=== PATIENT | female | born 1955 | race Caucasian/White ===

== ENCOUNTER 2016-07-05 15:06 | Inpatient (IN) | payer BC ==
[2016-07-05] MEDS ORDERED: Albuterol/Ipratropium NEB.SOL* Albuterol 2.5 MG/Ipratropium 0.5 MG 3 ML INH ONE (15:33)
[2016-07-05] MEDS ORDERED: Cefepime(*) 2 GM in NS 0.9% 50 ML* 50 ML IVPB ONE (15:33)
[2016-07-05] MEDS ORDERED: methylPREDNISolone SOD SUCC* 125 MG 2 ML VIAL IV ONE (15:33)
[2016-07-05] MEDS ORDERED: Levofloxacin 750 MG IVPREMIX(* 750 MG/150 ML BAG IVPB ONE (15:36)
[2016-07-05] MEDS ORDERED: NS 0.9% 1000 ML* 1,000 ML IV ONE (15:36)
[2016-07-05 16:01] LABS: Hematocrit 44 % (35-47); Mean Corpuscular HGB Conc 34 g/dl (31-36); Mean Corpuscular Hemoglobin 32 pg (27-31); Mean Corpuscular Volume 94 fL (80-97); Mean Platelet Volume 8 um3 (7.4-10.4); Red Blood Count 4.69 10^6/ul (4.0-5.4); Red Cell Distribution Width 14 % (10.5-15)
[2016-07-05] MEDS ORDERED: NS 0.9% 50 ML* 50 ML ONE (16:09)
[2016-07-05 16:25] LABS: Troponin I 0.01 ng/mL (<0.04)
[2016-07-05 16:29] LABS: BUN/Creatinine Ratio 34.2 (8-20); Calcium 9.3 mg/dL (8.6-10.3); EGFR African American 94.5 (>60); EGFR Non-African American 73.5 (>60); Potassium 3.5 mmol/L (3.5-5.0); Total Bilirubin 0.6 mg/dL (0.2-1.0)
--- NOTE | 2016-07-05 16:31 | RAD ---
INDICATION: Shortness of breath. COMPARISON: Comparison is made with prior chest x-ray study from September 26, 2015. TECHNIQUE: Dual-energy PA and lateral views of the chest were obtained. FINDINGS: The heart is within normal limits in size. Mediastinal and hilar contours appear within normal limits. The lungs are hyperinflated with flattening of the diaphragms consistent with chronic obstructive pulmonary disease. There is mild prominence of the interstitial markings which are unchanged. No pleural effusion is seen. There is an old healed fracture of the left posterior lateral fifth rib. IMPRESSION: FINDINGS CONSISTENT WITH COPD, NO EVIDENCE FOR ACUTE FINDING.
[2016-07-05 16:59] LABS: PCO2 Arterial 41 mmHg (35-45)
--- NOTE | 2016-07-05 17:31 | ED ---
Katie, DoctorKorina scribed for Leslie Mortensen MD on 07/05/16 at 1621 . Shortness of Breath - HPI Summary HPI Summary: 61 year old female arrived to [facility] c/o COPD exacerbation and SOB. Her symptoms began over a week ago; she visited [facility] three days ago and was given prednisone and doxy for her increased SOB. She additionally has been experiencing wheezing, a sore throat, regular coughing, and recent weight gain. She indicates that her at-home nebulizer and medications have not alleviated any of her symptoms. She does not have a PMHx of blood clots and is not experiencing any calf pain. She is a former smoker (quit in 2002); no PMHx of DM , HTN, or CAD. She regularly sees Dr. De La Rosa (PCP). - History of Current Complaint Chief Complaint: EDShortnessOfBreath Time Seen by Provider: 07/05/16 15:32 Hx Obtained From: Patient Onset/Duration: Gradual Onset, Still Present Current Severity: Moderate Dyspnea At: Exertion Aggrevating Factors: Deep Breaths Alleviating Factors: Nothing - no change with nebulizer or prednisone/doxy Associated Signs & Symptoms: Cough (Nonproductive), Wheezing - Allergy/Home Medications Allergies/Adverse Reactions: Allergies Allergy/AdvReac Type Severity Reaction Status Date / Time No Known Allergies Allergy Verified 04/29/16 14:15 PMH/Surg Hx/FS Hx/Imm Hx Endocrine/Hematology History: Denies: Hx Diabetes, Hx Thyroid Disease Cardiovascular History: Denies: Hx Congestive Heart Failure, Hx Hypercholesterolemia, Hx Hypertension , Hx Pacemaker/ICD Respiratory History: Reports: Hx Asthma, Hx Chronic Obstructive Pulmonary Disease (COPD) GI History: Denies: Hx Ulcer History: Reports: Hx Kidney Stones - Dec 2014 to the ED Denies: Hx Dialysis, Hx Renal Disease Musculoskeletal History: Denies: Hx Osteoporosis Sensory History: Denies: Hx Hearing Aid Psychiatric History: Reports: Hx Depression Denies: Hx Panic Disorder Infectious Disease History: Denies: Hx Hepatitis, Hx Human Immunodeficiency Virus (HIV), Traveled Outside the [place] in Last 30 Days - Family History Known Family History: Positive: Diabetes - Social History Lives: Alone - currently staying with a friend Alcohol Use: Rare Substance Use Type: Reports: None Smoking Status (MU): Former Smoker - quit in 2002 Review of Systems Negative: Fever Positive: Sore Throat Positive: Shortness Of Breath, Cough Positive: Other - no leg pain . Negative: Edema All Other Systems Reviewed And Are Negative: Yes Physical Exam Triage Information Reviewed: Yes Vital Signs On Initial Exam: Initial Vitals Temp Pulse Resp BP Pulse Ox 97.7 F 102 22 157/118 93 07/05/16 15:11 07/05/16 15:11 07/05/16 15:11 07/05/16 15:11 07/05/16 15:11 Vital Signs Reviewed: Yes Appearance: Positive: Well-Appearing, No Pain Distress Skin: Positive: Warm, Skin Color Reflects Adequate Perfusion, Dry Eyes: Positive: EOMI, CHAPARRO ENT: Positive: Pharynx normal, TMs normal Respiratory/Lung Sounds: Positive: Wheezes - expiratory wheezing, Other - tachypnea, contractions that are very clavicular Cardiovascular: Positive: RRR. Negative: Murmur, Rub Abdomen Description: Positive: Nontender, Soft. Negative: Distended, Guarding Bowel Sounds: Positive: Present Musculoskeletal: Positive: Strength/ROM Intact. Negative: Edema Left, Edema Right Neurological: Positive: Sensory/Motor Intact, Alert, Oriented to Person Place, Time, CN Intact II-III Psychiatric: Positive: Affect/Mood Appropriate Diagnostics - Vital Signs Vital Signs Temp Pulse Resp BP Pulse Ox 07/05/16 15:11 97.7 F 102 22 157/118 93 - Laboratory Lab Results: Lab Results 07/05/16 07/05/16 07/05/16 Range/Units 15:48 15:48 15:48 WBC 12.0 H (3.5-10.8) 10^3/ul RBC 4.69 (4.0-5.4) 10^6/ul Hgb 15.0 (12.0-16.0) g/dl Hct 44 (35-47) % MCV 94 (80-97) fL MCH 32 H (27-31) pg MCHC 34 (31-36) g/dl RDW 14 (10.5-15) % Plt Count 272 (150-450) 10^3/ul MPV 8 (7.4-10.4) um3 Neut % (Auto) 84.6 H (38-83) % Lymph % (Auto) 11.6 L (25-47) % [place] % (Auto) 2.5 (1-9) % Eos % (Auto) 0.4 (0-6) % Baso % (Auto) 0.9 (0-2) % Absolute Neuts (auto) 10.1 H (1.5-7.7) 10^3/ul Absolute Lymphs (auto) 1.4 (1.0-4.8) 10^3/ul Absolute Monos (auto) 0.3 (0-0.8) 10^3/ul Absolute Eos (auto) 0.1 (0-0.6) 10^3/ul Absolute Basos (auto) 0.1 (0-0.2) 10^3/ul Absolute Nucleated RBC 0 10^3/ul Nucleated RBC % 0 Patient Temperature ABG pH (7.35-7.45) ABG pCO2 (35-45) mmHg ABG pO2 (80-100) mmHg ABG HCO3 (19-31) mmol/L ABG O2 Saturation (95-98) % ABG Base Excess (-2.0-2.0) Respiration Rate O2 Delivery Device Ventilator Type Vent Mode FiO2 Inspiratory Time PEEP Pressure Support Pressure Control EPAP IPAP BiPAP Sodium 139 (133-145) mmol/L Potassium 3.5 (3.5-5.0) mmol/L Chloride 103 (101-111) mmol/L Carbon Dioxide 30 (22-32) mmol/L Anion Gap 6 (2-11) mmol/L BUN 27 H (6-24) mg/dL Creatinine 0.79 (0.51-0.95) mg/dL Est GFR ( Amer) 94.5 (>60) Est GFR (Non-Af Amer) 73.5 (>60) BUN/Creatinine Ratio 34.2 H (8-20) Glucose 135 H (70-100) mg/dL Lactic Acid 1.3 (0.5-2.0) mmol/L Calcium 9.3 (8.6-10.3) mg/dL Total Bilirubin 0.60 (0.2-1.0) mg/dL AST 19 (13-39) U/L ALT 22 (7-52) U/L Alkaline Phosphatase 72 (34-104) U/L Troponin I 0.01 (<0.04) ng/mL B-Natriuretic Peptide ( - 100) pg/mL Total Protein 7.0 (6.4-8.9) g/dL Albumin 4.0 (3.2-5.2) g/dL Globulin 3.0 (2-4) g/dL Albumin/Globulin Ratio 1.3 (1-3) 07/05/16 07/05/16 Range/Units 15:48 16:34 WBC (3.5-10.8) 10^3/ul RBC (4.0-5.4) 10^6/ul Hgb (12.0-16.0) g/dl Hct (35-47) % MCV (80-97) fL MCH (27-31) pg MCHC (31-36) g/dl RDW (10.5-15) % Plt Count (150-450) 10^3/ul MPV (7.4-10.4) um3 Neut % (Auto) (38-83) % Lymph % (Auto) (25-47) % [place] % (Auto) (1-9) % Eos % (Auto) (0-6) % Baso % (Auto) (0-2) % Absolute Neuts (auto) (1.5-7.7) 10^3/ul Absolute Lymphs (auto) (1.0-4.8) 10^3/ul Absolute Monos (auto) (0-0.8) 10^3/ul Absolute Eos (auto) (0-0.6) 10^3/ul Absolute Basos (auto) (0-0.2) 10^3/ul Absolute Nucleated RBC 10^3/ul Nucleated RBC % Patient Temperature Not Reportable ABG pH 7.41 (7.35-7.45) ABG pCO2 41 (35-45) mmHg ABG pO2 83 (80-100) mmHg ABG HCO3 25.8 (19-31) mmol/L ABG O2 Saturation 97.3 (95-98) % ABG Base Excess 1.2 (-2.0-2.0) Respiration Rate Not Reportable O2 Delivery Device Not Reportable Ventilator Type Not Reportable Vent Mode Not Reportable FiO2 Not Reportable Inspiratory Time Not Reportable PEEP Not Reportable Pressure Support Not Reportable Pressure Control Not Reportable EPAP Not Reportable IPAP Not Reportable BiPAP Not Reportable Sodium (133-145) mmol/L Potassium (3.5-5.0) mmol/L Chloride (101-111) mmol/L Carbon Dioxide (22-32) mmol/L Anion Gap (2-11) mmol/L BUN (6-24) mg/dL Creatinine (0.51-0.95) mg/dL Est GFR ( Amer) (>60) Est GFR (Non-Af Amer) (>60) BUN/Creatinine Ratio (8-20) Glucose (70-100) mg/dL Lactic Acid (0.5-2.0) mmol/L Calcium (8.6-10.3) mg/dL Total Bilirubin (0.2-1.0) mg/dL AST (13-39) U/L ALT (7-52) U/L Alkaline Phosphatase (34-104) U/L Troponin I (<0.04) ng/mL B-Natriuretic Peptide 26 ( - 100) pg/mL Total Protein (6.4-8.9) g/dL Albumin (3.2-5.2) g/dL Globulin (2-4) g/dL Albumin/Globulin Ratio (1-3) Result Diagrams: 07/05/16 15:48 07/05/16 15:48 Lab Statement: Any lab studies that have been ordered have been reviewed, and results considered in the medical decision making process. - Radiology CXR Radiology Interpretation Completed By: ED Physician - wedge infiltrate at right base, Radiologist - IMPRESSION: FINDINGS CONSISTENT WITH COPD, NO EVIDENCE FOR ACUTE FINDING. - EKG 15:17 Cardiac Rate: NL - 94 bpm EKG Rhythm: Sinus Rhythm Ectopy: None EKG Interpretation: Non-Specific T Wave changes EKG Comparison: No Significant Change - from EKG taken on 09/22/2015 Re-Evaluation - Re-Evaluation First Eval Re-Evaluation Time: 16:15 Change: Unchanged - discussed treatment plan, decision to be admitted Course/Dx - Course Course Of Treatment: 61 yo copd failing outpt meds, started on abx to cover for pseudomonas here and ivf and admitted to hospitalist - Diagnoses Provider Diagnoses: COPD exacerbation - Physician Notifications Discussed Care of Patient With: 15:18 - Discussed care of pt with Dr. Quintero ( Hospitalist), she agrees to admit pt. Discharge - Discharge Plan Condition: Stable Disposition: ADMITTED TO [facility] The documentation as recorded by the phucibDoctor cormier Tahera accurately reflects the service I personally performed and the decisions made by me, Leslie Mortensen MD.
[2016-07-05] MEDS ORDERED: Albuterol/Ipratropium NEB.SOL* Albuterol 2.5 MG/Ipratropium 0.5 MG 3 ML INH PRN (17:37)
[2016-07-05] MEDS ORDERED: Acetaminophen TAB* 325 MG PO PRN (17:37)
[2016-07-05] MEDS ORDERED: NS 0.9% 1000 ML* 1,000 ML IV SCH (17:45)
[2016-07-05] MEDS: Enoxaparin(*) 40 MG/0.4 ML SYR SUBCUT SCH (21:01)
[2016-07-05] MEDS: guaiFENesin ER TAB 600 MG PO SCH (21:02)
[2016-07-05] MEDS: Albuterol/Ipratropium NEB.SOL* Albuterol 2.5 MG/Ipratropium 0.5 MG 3 ML INH SCH (21:39)
[2016-07-05] MEDS: Mometasone/Formoter 200/5 MDI INH SCH (22:00)
[2016-07-06] MEDS: Albuterol/Ipratropium NEB.SOL* Albuterol 2.5 MG/Ipratropium 0.5 MG 3 ML INH SCH ×4 (01:54→19:57)
--- NOTE | 2016-07-06 04:49 | HP ---
HISTORY AND PHYSICAL:* ADDENDUM: Ms. Mishra is a 61-year-old female with a history of COPD who presents with exacerbation. The patient is going to be placed on observation and treated for COPD exacerbation. For details of the patient's presentation and plan, please see history and physical dictated by Joshua Lawton on with which I agree. [id number]/[facility] #: [id number] MTDD
--- NOTE | 2016-07-06 05:14 | HP ---
ADDENDUM BY SUPERVISING PHYSICIAN NOW INCLUDED ON THIS REPORT ADMISSION HISTORY AND PHYSICAL: DATE OF ADMISSION: 07/05/16 PRIMARY CARE PROVIDER: Dr. Kg De La Rosa ADMITTING PROVIDER: EMMA Tello SUPERVISING PHYSICIAN: Dr. Sofia Mckee* (dictated by EMMA Tello) CHIEF COMPLAINT: Shortness of breath. HISTORY OF PRESENT ILLNESS: This is a very pleasant 61-year-old female with a history of COPD and depression, who presented to the emergency department with complaints of progressive shortness of breath. The patient was seen with the main complaints at Urgent Care approximately 4 days ago and was started on prednisone and doxycycline, which she has been taking as directed since that time. She states that she was started on a dose of 60 mg daily for 3 days and tapering by 20 mg every 3 days. She states that she never felt any improvement after initiating the steroids and antibiotics. She has an albuterol nebulizer available to her at home. In the last couple of days, she has been using it 3 to 4 times daily again without significant improvement in her symptoms. She states that her symptoms started almost 10 days ago with a sore throat and a cough. She had 1 night of fevers, but has otherwise been afebrile since. She denies any associated GI symptoms. She denies chest pain or rashes. PAST MEDICAL HISTORY: 1. COPD. 2. Depression. 3. Urge incontinence. 4. Vitamin D deficiency. 5. Osteoarthritis. 6. Cervical stenosis. PAST SURGICAL HISTORY: None. HOME MEDICATIONS: 1. Xanax 0.5 mg p.o. q.6 hours as needed for anxiety. 2. Nebulized albuterol 2.5 mg inhaled q.4 hours as needed for shortness of breath. 3. Albuterol HFA 2 puffs inhaled q.4 hours as needed for shortness of breath. 4. Adderall 30 mg p.o. daily. 5. Symbicort 2 puffs inhaled twice daily. 6. Cetirizine 10 mg p.o. daily. 7. Fluoxetine 40 mg p.o. daily. 8. Asmanex 2 puffs inhaled daily. 9. Singulair 10 mg p.o. daily. SOCIAL HISTORY: The patient is currently living with a friend. She has a 30- pack year smoking history and quit in 2002. She consumes occasional alcohol. 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 REVIEW OF SYSTEMS: As listed above in HPI. PHYSICAL EXAMINATION GENERAL: This is a very pleasant 61-year-old female in mild respiratory distress. VITAL SIGNS: Initial vitals; temperature 97.7 degrees Fahrenheit, pulse 102 beats per minute, respiratory rate 22 per minute, oxygen saturation 93% on room air, blood pressure 157/118 mmHg. HEENT: Head is normocephalic and atraumatic. Mucous membranes are pink and moist. RESPIRATORY: The patient is mildly tachypneic with some increased work of breathing. She has a diffuse wheeze appreciated. No rhonchi or crackles noted. CARDIOVASCULAR: Heart has a regular rate and rhythm without murmurs, rubs, or gallops. ABDOMEN: Abdomen is soft and nontender to palpation. EXTREMITIES: No lower extremity edema appreciated. PSYCH: The patient is alert and appropriately oriented. SKIN: Limited exam shows no concerning rashes or lesions. LABORATORY EVALUATION: CBC shows a white blood cell count of 12,000, hemoglobin of 15, and a platelet count of 272,000. ABG is unremarkable with a pH of 7.41, pCO2 of 41, pO2 of 83, and bicarb of 25. Comprehensive metabolic panel is largely unremarkable with a sodium of 139 mmol/L, potassium 3.5, serum bicarb of 30, anion gap 6, BUN of 27, creatinine 0.79, and an estimated GFR of 73. Lactic acid normal at 1.3. Transaminases and total bilirubin within normal limits. BNP normal at 26. Troponin negative at 0.01. IMAGING: Chest x-ray shows no acute changes. She does have some chronic changes consistent with COPD. EKG shows a sinus rhythm with a QTc of 500 msec. ASSESSMENT AND PLAN: This is a 61-year-old female with a history of chronic obstructive pulmonary disease, depression, and urge incontinence, who presents with complaints of increasing shortness of breath despite appropriate outpatient treatment for chronic obstructive pulmonary disease exacerbation. 1. Chronic obstructive pulmonary disease exacerbation - the patient is not hypoxic, but tachypneic at presentation in the emergency department. She does note some improvement after receiving a DuoNeb and continue Solu-Medrol. We will empirically treat with Levaquin. No acute infiltrate appreciated on chest x-ray. We will treat with scheduled DuoNebs as well as continuing her Symbicort and Spiriva. She is also on Asmanex in addition to her Symbicort, these are 2 inhaled corticosteroids. We will plan to address this at the time of discharge , but she does not require both. We will also likely hydrate her and start her on Mucinex to help some of her mucous secretions and make them easier to clear. We will also check for influenza. I do not believe that this will change her management at this point due to the length of her illness, but will be helpful for appropriate quarantine in the hospital setting. 2. Depression - continue fluoxetine and Adderall. 3. Urge incontinence. 4. Code status. The patient is full code. 5. Healthcare proxy is unknown. 6. DVT prophylaxis. The patient will be started on 40 mg of Lovenox subcu daily. DISPOSITION: The patient is being admitted to observation status at this time for COPD exacerbation with anticipated discharge possible for tomorrow. EMMA TELLO ADDENDUM: Ms. Mishra is a 61-year-old female with a history of COPD who presents with exacerbation. The patient is going to be placed on observation and treated for COPD exacerbation. For details of the patient's presentation and plan, please see history and physical dictated by Joshua Lawton on 07/05/16 with which I agree. SOFIA MCKEE MD CC: Dr. Kg De La Rosa* [id number]/[facility] #: [id number] #: [id number] OLAYINKA
[2016-07-06 07:12] LABS: Hematocrit 41 % (35-47); Hemoglobin 13.6 g/dl (12.0-16.0); Mean Corpuscular HGB Conc 33 g/dl (31-36); Mean Corpuscular Hemoglobin 31 pg (27-31); Mean Corpuscular Volume 95 fL (80-97); Mean Platelet Volume 8 um3 (7.4-10.4); Red Blood Count 4.32 10^6/ul (4.0-5.4); Red Cell Distribution Width 13 % (10.5-15); White Blood Count 12.2 10^3/ul (3.5-10.8)
[2016-07-06 07:27] LABS: BUN/Creatinine Ratio 33.3 (8-20); Calcium 8.7 mg/dL (8.6-10.3); EGFR African American 110.5 (>60); EGFR Non-African American 85.9 (>60); Potassium 4.7 mmol/L (3.5-5.0)
[2016-07-06] MEDS: Mometasone/Formoter 200/5 MDI INH SCH ×2 (08:05→19:57)
[2016-07-06] MEDS: FLUoxetine CAP* 20 MG PO SCH (08:39)
[2016-07-06] MEDS: Amphetamine MIXED SALT TAB* 10 MG TAB PO SCH (08:40)
[2016-07-06] MEDS: methylPREDNISolone SOD SUCC* 125 MG 2 ML VIAL IV SCH (08:40)
[2016-07-06] MEDS: guaiFENesin ER TAB 600 MG PO SCH ×2 (08:40→21:10)
[2016-07-06] MEDS: Cetirizine* 10 MG TAB PO SCH (08:40)
[2016-07-06] MEDS: Montelukast Sodium TAB* 10 MG PO SCH (08:40)
--- NOTE | 2016-07-06 11:22 | PN ---
Subjective Date of Service: 07/06/16 Interval History: This is a 61 yo female with COPD admitted last night who presented with c/o SOB. She has been admitted with COPD exacerbation. She was started on Solumedrol and scheduled nebs with her typical inhaled medications. She unfortunately did not receive any nebulizers overnight and reports this am no improvement in symptoms. She continues to be severely breathless with activity and mildly dyspneic at rest. Objective Active Medications: Acetaminophen (Tylenol Tab*) 650 mg PO Q4H PRN PRN Reason: FEVER/PAIN Albuterol/Ipratropium (Duoneb (Albuterol 2.5 Mg/Ipratropium 0.5 Mg)) 1 neb INH [id number] AWAKE PRN PRN Reason: sob/wheexing Albuterol/Ipratropium (Duoneb (Albuterol 2.5 Mg/Ipratropium 0.5 Mg)) 1 neb INH [id number] AWAKE [facility] Last Admin: 07/06/16 01:54 Dose: Not Given Alprazolam (Xanax Tab*) 0.5 mg PO Q6H PRN PRN Reason: anxiety/SOB Amphetamine/Dextroamphetamine (Adderall Tab*) 30 mg PO DAILY@0800 [facility] Last Admin: 07/06/16 08:40 Dose: 30 mg Cetirizine HCl (Zyrtec*) 10 mg PO DAILY [facility] PRN Reason: Protocol Last Admin: 07/06/16 08:40 Dose: 10 mg Enoxaparin Sodium (Lovenox(*)) 40 mg SUBCUT Q24H [facility] Last Admin: 07/05/16 21:01 Dose: 40 mg Fluoxetine HCl (Prozac Cap*) 40 mg PO DAILY [facility] Last Admin: 07/06/16 08:39 Dose: 40 mg Guaifenesin (Mucinex*) 1,200 mg PO BID [facility] Last Admin: 07/06/16 08:40 Dose: 1,200 mg Levofloxacin/Dextrose (Levaquin 750 Mg Ivpremix(*)) 750 mg in 150 mls @ 100 mls /hr IVPB Q24H [facility] Methylprednisolone Sodium Succinate (Solu-Medrol*) 60 mg IV DAILY [facility] Last Admin: 07/06/16 08:40 Dose: 60 mg Mometasone Furoate/Formoterol Fumar (Dulera 200/5 Mdi*) 2 puff INH BID [facility] PRN Reason: Protocol Last Admin: 07/06/16 08:05 Dose: 2 puff Montelukast Sodium (Singulair Tab*) 10 mg PO DAILY [facility] Last Admin: 07/06/16 08:40 Dose: 10 mg Vital Signs: Temp Pulse Resp BP Pulse Ox 97.9 F 81 16 154/91 97 07/06/16 06:51 07/06/16 06:51 07/06/16 06:51 07/06/16 06:51 07/06/16 06:51 Oxygen Devices in Use Now: Nasal Cannula Appearance: Mild respiratory distress Neck: NL Appearance and Movements; NL JVP, Trachea Midline Respiratory: - - increased WOB, reduced breath sounds throughout, few exp wheezes Cardiovascular: NL Sounds; No Murmurs; No JVD Extremities: No Edema Skin: No Rash or Ulcers Neurological: Alert and Oriented x 3 Result Diagrams: 07/06/16 06:54 07/06/16 06:54 Additional Lab and Data: . Microbiology and Other Data: Microbiology 07/05/16 18:55 Influenza Types A,B Antigen (TAVIA) - Final Nasal Specimen received for Influenza A/B Molecular testing Diagnostic Imaging: CXR - NAD Assess/Plan/Problems-Billing Assessment: This is a 61 yo female with COPD and depression who presented with complaints of SOB and cough which did not respond to outpatient oral steroids and antibiotics. - Patient Problems (1) COPD exacerbation Comment: Remains severely dyspneic with activity and mildly so at rest with 3L via NC Cont IV solumedrol, scheduled Duonebs and home LABA/ICS, LAMA Cont Levaquin (2) Depression Comment: Stable Cont home medications (3) Full code status (4) DVT prophylaxis Comment: Lovenox 40mg SQ qd Status and Disposition: Patient requires continued hospital care. Convert to inpatient status.
[2016-07-06] MEDS ORDERED: Spiriva Inhaler DEVICE* 1 EACH DEVICE INH ONE (12:00)
[2016-07-06] MEDS: Calcium/Vitamin D TAB 250/125* TAB PO SCH (13:22)
[2016-07-06] MEDS: Cholecalciferol TAB* 1000 UNITS PO SCH (13:22)
[2016-07-06] MEDS: ALPRAZolam TAB* 0.5 MG PO PRN (15:29)
[2016-07-06] MEDS: Tiotropium CAP.INH* CAP.INH/18 MCG INH SCH (15:30)
[2016-07-06] MEDS ORDERED: Levofloxacin 750 MG IVPREMIX(* 750 MG/150 ML BAG IVPB SCH (17:00)
[2016-07-06] MEDS: Enoxaparin(*) 40 MG/0.4 ML SYR SUBCUT SCH (18:37)
[2016-07-07] MEDS: Albuterol/Ipratropium NEB.SOL* Albuterol 2.5 MG/Ipratropium 0.5 MG 3 ML INH SCH ×4 (00:53→20:37)
[2016-07-07] MEDS: Tiotropium CAP.INH* CAP.INH/18 MCG INH SCH (07:44)
[2016-07-07] MEDS: Mometasone/Formoter 200/5 MDI INH SCH ×2 (07:45→20:37)
[2016-07-07] MEDS: Cholecalciferol TAB* 1000 UNITS PO SCH (08:16)
[2016-07-07] MEDS: Calcium/Vitamin D TAB 250/125* TAB PO SCH (08:16)
[2016-07-07] MEDS: FLUoxetine CAP* 20 MG PO SCH (08:16)
[2016-07-07] MEDS: Montelukast Sodium TAB* 10 MG PO SCH (08:17)
[2016-07-07] MEDS: Amphetamine MIXED SALT TAB* 10 MG TAB PO SCH (08:17)
[2016-07-07] MEDS: Cetirizine* 10 MG TAB PO SCH (08:17)
[2016-07-07] MEDS: methylPREDNISolone SOD SUCC* 125 MG 2 ML VIAL IV SCH (08:17)
[2016-07-07] MEDS: guaiFENesin ER TAB 600 MG PO SCH ×2 (08:17→20:05)
--- NOTE | 2016-07-07 09:19 | PN ---
Subjective Date of Service: 07/07/16 Interval History: Patient seen and examined at bedside. Pt states that she continues to have marked shortness of breath with exertion. She doesn't have oxygen at home, but is requiring 3L via NC here. Denies fever, chills, chest discomfort, N/V/D. Pt reports a dry, non productive cough. Family History: Unchanged from Admission Social History: Unchanged from Admission Past Medical History: Unchanged from Admission Objective Active Medications: Acetaminophen (Tylenol Tab*) 650 mg PO Q4H PRN Reason: FEVER/PAIN Albuterol/Ipratropium (Duoneb (Albuterol 2.5 Mg/Ipratropium 0.5 Mg)) 1 neb INH [id number] AWAKE PRN Reason: sob/wheexing Albuterol/Ipratropium (Duoneb (Albuterol 2.5 Mg/Ipratropium 0.5 Mg)) 1 neb INH [id number] AWAKE [facility] Alprazolam (Xanax Tab*) 0.5 mg PO Q6H PRN Reason: anxiety/SOB Amphetamine/Dextroamphetamine (Adderall Tab*) 30 mg PO DAILY@0800 [facility] Calcium/Vitamin D (Oscal D Tab 250/125*) 1 tab PO DAILY [facility] Cetirizine HCl (Zyrtec*) 10 mg PO DAILY [facility] Cholecalciferol (Vitamin D Tab*) 2,000 units PO DAILY [facility] Enoxaparin Sodium (Lovenox(*)) 40 mg SUBCUT Q24H [facility] Fluoxetine HCl (Prozac Cap*) 40 mg PO DAILY [facility] Guaifenesin (Mucinex*) 1,200 mg PO BID [facility] Levofloxacin/Dextrose (Levaquin 750 Mg Ivpremix(*)) 750 mg in 150 mls @ 100 mls /hr IVPB Q24H [facility] Methylprednisolone Sodium Succinate (Solu-Medrol*) 60 mg IV DAILY [facility] Mometasone Furoate/Formoterol Fumar (Dulera 200/5 Mdi*) 2 puff INH BID [facility] Montelukast Sodium (Singulair Tab*) 10 mg PO DAILY [facility] Tiotropium [place] (Spiriva Cap.Inh*) 1 cap INH DAILY [facility] Vital Signs 07/06/16 07/06/16 07/06/16 11:27 11:40 15:29 Temperature 98.3 F Pulse Rate 75 81 Respiratory 18 16 22 Rate Blood Pressure 154/67 (mmHg) O2 Sat by Pulse 99 95 Oximetry 07/06/16 07/06/16 07/06/16 15:44 17:26 19:55 Temperature 98.4 F 98.2 F Pulse Rate 92 86 Respiratory 20 16 20 Rate Blood Pressure 151/88 153/50 (mmHg) O2 Sat by Pulse 96 98 Oximetry 07/06/16 07/06/16 07/07/16 20:02 20:03 00:05 Temperature 98.7 F Pulse Rate 86 80 Respiratory 18 18 16 Rate Blood Pressure 154/93 (mmHg) O2 Sat by Pulse 97 97 Oximetry 07/07/16 07/07/16 07/07/16 01:00 06:15 07:35 Temperature Pulse Rate 85 Respiratory 20 20 20 Rate Blood Pressure (mmHg) O2 Sat by Pulse 98 Oximetry 07/07/16 07/07/16 07:47 08:12 Temperature 98.2 F Pulse Rate 80 77 Respiratory 14 16 Rate Blood Pressure 138/76 (mmHg) O2 Sat by Pulse 98 96 Oximetry Oxygen Devices in Use Now: Nasal Cannula - 3L Appearance: NAD, sitting up in bed Eyes: No Scleral Icterus Ears/Nose/Mouth/Throat: Mucous Membranes Moist Neck: NL Appearance and Movements; NL JVP, Trachea Midline Respiratory: Symmetrical Chest Expansion and Respiratory Effort, - - Lung sounds diminished, exp wheeze bilateral Cardiovascular: NL Sounds; No Murmurs; No JVD, RRR Abdominal: NL Sounds; No Tenderness; No Distention Extremities: No Edema Neurological: Alert and Oriented x 3, NL Muscle Strength and Tone Lines/Tubes/Other Access: Clean, Dry and Intact Peripheral IV - site benign Nutrition: Taking PO's Result Diagrams: 07/06/16 06:54 07/06/16 06:54 Additional Lab and Data: . Microbiology and Other Data: Microbiology 07/05/16 18:55 Influenza Types A,B Antigen (TAVIA) - Final Nasal Specimen received for Influenza A/B Molecular testing Diagnostic Imaging: CXR - NAD Assess/Plan/Problems-Billing Assessment: Me. Mishra is a 61 yo female with COPD and depression who presented with complaints of SOB and cough which did not respond to outpatient oral steroids and antibiotics. - Patient Problems (1) COPD exacerbation Code(s): J44.1 - CHRONIC OBSTRUCTIVE PULMONARY DISEASE W (ACUTE) EXACERBATION SNOMED Code(s): 025532546 Comment: - Remains severely dyspneic with activity and mildly so at rest with 3L via NC - Pt was not on supplemental home O2 - Chest xray shows NAD, Blood cultures negatice, day 1 - Continue IV solumedrol, scheduled Duonebs and home LABA/ICS, LAMA - Continue Levaquin (2) Depression Code(s): F32.9 - MAJOR DEPRESSIVE DISORDER, SINGLE EPISODE, UNSPECIFIED SNOMED Code(s): 36348451 Comment: - Stable - Continue home medications (3) DVT prophylaxis Code(s): OHW8296 - SNOMED Code(s): 448402841 Comment: - Lovenox 40mg SQ qd (4) Full code status Code(s): Z78.9 - OTHER SPECIFIED HEALTH STATUS SNOMED Code(s): 744516887 Status and Disposition: Inpatient. Patient requires continued hospital care. Anticipate possible discharge in the next 2-3 days.
[2016-07-07] MEDS: cefTRIAXone* 1 GM in NS 0.9% 50 ML BAG IVPB SCH (17:17)
[2016-07-07] MEDS: Enoxaparin(*) 40 MG/0.4 ML SYR SUBCUT SCH (17:17)
[2016-07-08] MEDS: Albuterol/Ipratropium NEB.SOL* Albuterol 2.5 MG/Ipratropium 0.5 MG 3 ML INH SCH ×4 (01:07→20:00)
[2016-07-08] MEDS: Tiotropium CAP.INH* CAP.INH/18 MCG INH SCH (08:26)
[2016-07-08] MEDS: Mometasone/Formoter 200/5 MDI INH SCH ×2 (08:27→20:01)
[2016-07-08] MEDS: Amphetamine MIXED SALT TAB* 10 MG TAB PO SCH ×2 (08:43→10:20)
[2016-07-08] MEDS: Calcium/Vitamin D TAB 250/125* TAB PO SCH (08:58)
[2016-07-08] MEDS: Cholecalciferol TAB* 1000 UNITS PO SCH (08:58)
[2016-07-08] MEDS: Cetirizine* 10 MG TAB PO SCH (08:58)
[2016-07-08] MEDS: guaiFENesin ER TAB 600 MG PO SCH ×2 (08:59→21:52)
[2016-07-08] MEDS: FLUoxetine CAP* 20 MG PO SCH (08:59)
[2016-07-08] MEDS: Montelukast Sodium TAB* 10 MG PO SCH (09:00)
[2016-07-08] MEDS: methylPREDNISolone SOD SUCC* 125 MG 2 ML VIAL IV SCH (09:00)
--- NOTE | 2016-07-08 09:27 | PN ---
Subjective Date of Service: 07/08/16 Interval History: Patient seen and examined at bedside. Pt states that her breathing feels less tight today, but she continues to have significant shortness of breath this exertion. Denies fever, chills, chest discomfort, N/V/D. Pt doesn't use O2 at home and has been requiring 2L via NC here, will attempt to wean O2 today. Family History: Unchanged from Admission Social History: Unchanged from Admission Past Medical History: Unchanged from Admission Objective Active Medications: Acetaminophen (Tylenol Tab*) 650 mg PO Q4H PRN Reason: FEVER/PAIN Albuterol/Ipratropium (Duoneb (Albuterol 2.5 Mg/Ipratropium 0.5 Mg)) 1 neb INH [id number] AWAKE PRN Reason: sob/wheexing Albuterol/Ipratropium (Duoneb (Albuterol 2.5 Mg/Ipratropium 0.5 Mg)) 1 neb INH [id number] AWAKE [facility] Alprazolam (Xanax Tab*) 0.5 mg PO Q6H PRN Reason: anxiety/SOB Amphetamine/Dextroamphetamine (Adderall Tab*) 30 mg PO DAILY@0800 [facility] Calcium/Vitamin D (Oscal D Tab 250/125*) 1 tab PO DAILY [facility] Cetirizine HCl (Zyrtec*) 10 mg PO DAILY [facility] Reason: Protocol Cholecalciferol (Vitamin D Tab*) 2,000 units PO DAILY [facility] Enoxaparin Sodium (Lovenox(*)) 40 mg SUBCUT Q24H [facility] Fluoxetine HCl (Prozac Cap*) 40 mg PO DAILY [facility] Guaifenesin (Mucinex*) 1,200 mg PO BID [facility] Ceftriaxone Sodium 1,000 mg/ (Sodium Chloride) 50 mls @ 200 mls/hr IVPB Q24H [facility] Methylprednisolone Sodium Succinate (Solu-Medrol*) 60 mg IV DAILY [facility] Mometasone Furoate/Formoterol Fumar (Dulera 200/5 Mdi*) 2 puff INH BID [facility] Reason: Protocol Montelukast Sodium (Singulair Tab*) 10 mg PO DAILY [facility] Tiotropium [place] (Spiriva Cap.Inh*) 1 cap INH DAILY [facility] Vital Signs 07/07/16 07/07/16 07/07/16 13:19 16:02 20:00 Temperature 98.5 F Pulse Rate 86 93 Respiratory 20 Rate Blood Pressure 158/85 (mmHg) O2 Sat by Pulse 95 Oximetry 07/07/16 07/08/16 07/08/16 20:43 00:31 07:23 Temperature 98.5 F 98.0 F Pulse Rate 85 73 77 Respiratory 16 17 Rate Blood Pressure 143/79 150/83 (mmHg) O2 Sat by Pulse 96 92 97 Oximetry 07/08/16 07/08/16 08:00 08:34 Temperature 98.1 F Pulse Rate 75 80 Respiratory 18 14 Rate Blood Pressure 133/71 (mmHg) O2 Sat by Pulse 97 98 Oximetry Oxygen Devices in Use Now: Nasal Cannula - 2L Appearance: NAD, sitting up in bed Eyes: No Scleral Icterus Ears/Nose/Mouth/Throat: Mucous Membranes Moist Respiratory: Symmetrical Chest Expansion and Respiratory Effort, - - Lung sounds with exp wheeze bilateral, air movement improved today Cardiovascular: NL Sounds; No Murmurs; No JVD, RRR Abdominal: NL Sounds; No Tenderness; No Distention Extremities: No Edema Skin: No Rash or Ulcers Neurological: Alert and Oriented x 3, NL Muscle Strength and Tone Lines/Tubes/Other Access: Clean, Dry and Intact Peripheral IV - site benign Nutrition: Taking PO's Result Diagrams: 07/06/16 06:54 07/06/16 06:54 Additional Lab and Data: . Microbiology and Other Data: Microbiology 07/05/16 18:55 Influenza Types A,B Antigen (TAVIA) - Final Nasal Specimen received for Influenza A/B Molecular testing Diagnostic Imaging: CXR - NAD Assess/Plan/Problems-Billing Assessment: Me. Mishra is a 61 yo female with COPD and depression who presented with complaints of SOB and cough which did not respond to outpatient oral steroids and antibiotics. - Patient Problems (1) COPD exacerbation Code(s): J44.1 - CHRONIC OBSTRUCTIVE PULMONARY DISEASE W (ACUTE) EXACERBATION SNOMED Code(s): 363537964 Comment: - Remains dyspneic with activity with 2L via NC - Pt was not on supplemental home O2, will attempt to wean O2 today - Chest xray shows NAD, Blood cultures negatice, day 2 - Continue scheduled Duonebs and home LABA/ICS, LAMA - Continue ABX changed to Ceftriaxone, continue for now - Change IV solumedrol to PO Prednisone (2) Depression Code(s): F32.9 - MAJOR DEPRESSIVE DISORDER, SINGLE EPISODE, UNSPECIFIED SNOMED Code(s): 37895434 Comment: - Stable - Continue home medications (3) DVT prophylaxis Code(s): FEA9959 - SNOMED Code(s): 473655367 Comment: - Lovenox 40mg SQ qd (4) Full code status Code(s): Z78.9 - OTHER SPECIFIED HEALTH STATUS SNOMED Code(s): 537215810 Status and Disposition: Inpatient. Patient requires continued hospital care. Anticipate possible discharge in the next 1-2 days.
[2016-07-08] MEDS: Naproxen TAB* 250 MG PO PRN ×2 (10:12→21:56)
[2016-07-08] MEDS: ALPRAZolam TAB* 0.5 MG PO PRN (14:45)
[2016-07-08] MEDS: cefTRIAXone* 1 GM in NS 0.9% 50 ML BAG IVPB SCH (16:16)
[2016-07-08] MEDS: Enoxaparin(*) 40 MG/0.4 ML SYR SUBCUT SCH (16:30)
[2016-07-09] MEDS: Albuterol/Ipratropium NEB.SOL* Albuterol 2.5 MG/Ipratropium 0.5 MG 3 ML INH SCH ×4 (02:17→19:38)
[2016-07-09 06:31] LABS: Hematocrit 40 % (35-47); Hemoglobin 13.2 g/dl (12.0-16.0); Mean Corpuscular HGB Conc 34 g/dl (31-36); Mean Corpuscular Hemoglobin 32 pg (27-31); Mean Corpuscular Volume 95 fL (80-97); Mean Platelet Volume 7 um3 (7.4-10.4); Red Blood Count 4.15 10^6/ul (4.0-5.4); Red Cell Distribution Width 13 % (10.5-15); White Blood Count 12.2 10^3/ul (3.5-10.8)
[2016-07-09 06:34] LABS: Add Diff/Slide Review? Slide Review Added; Comments Flag Yes
[2016-07-09] MEDS: Tiotropium CAP.INH* CAP.INH/18 MCG INH SCH (07:38)
[2016-07-09] MEDS: Mometasone/Formoter 200/5 MDI INH SCH ×2 (07:38→19:39)
[2016-07-09] MEDS: Amphetamine MIXED SALT TAB* 10 MG TAB PO SCH (08:17)
[2016-07-09] MEDS: FLUoxetine CAP* 20 MG PO SCH (08:18)
[2016-07-09] MEDS: predniSONE TAB* 20 MG PO SCH (08:18)
[2016-07-09] MEDS: Calcium/Vitamin D TAB 250/125* TAB PO SCH (08:19)
[2016-07-09] MEDS: Montelukast Sodium TAB* 10 MG PO SCH (08:19)
[2016-07-09] MEDS: Cholecalciferol TAB* 1000 UNITS PO SCH (08:19)
[2016-07-09] MEDS: guaiFENesin ER TAB 600 MG PO SCH ×2 (08:20→20:22)
[2016-07-09] MEDS: Cetirizine* 10 MG TAB PO SCH (08:20)
--- NOTE | 2016-07-09 10:31 | PN ---
Subjective Date of Service: 07/09/16 Interval History: Patient seen and examined at bedside. Pt states that she continues to have shortness of breath with ambulation to the bathroom and a moist non-productive cough. She also reports feeling feverish overnight, temp documented at 101.1 max. Denies chills, chest discomfort, N/V/D. Family History: Unchanged from Admission Social History: Unchanged from Admission Past Medical History: Unchanged from Admission Objective Active Medications: Acetaminophen (Tylenol Tab*) 650 mg PO Q4H PRN Reason: FEVER/PAIN Albuterol/Ipratropium (Duoneb (Albuterol 2.5 Mg/Ipratropium 0.5 Mg)) 1 neb INH [id number] AWAKE PRN Reason: sob/wheexing Albuterol/Ipratropium (Duoneb (Albuterol 2.5 Mg/Ipratropium 0.5 Mg)) 1 neb INH [id number] AWAKE [facility] Alprazolam (Xanax Tab*) 0.5 mg PO Q6H PRN Reason: anxiety/SOB Amphetamine/Dextroamphetamine (Adderall Tab*) 30 mg PO DAILY@0800 [facility] Calcium/Vitamin D (Oscal D Tab 250/125*) 1 tab PO DAILY [facility] Cetirizine HCl (Zyrtec*) 10 mg PO DAILY [facility] Reason: Protocol Cholecalciferol (Vitamin D Tab*) 2,000 units PO DAILY [facility] Enoxaparin Sodium (Lovenox(*)) 40 mg SUBCUT Q24H [facility] Fluoxetine HCl (Prozac Cap*) 40 mg PO DAILY [facility] Guaifenesin (Mucinex*) 1,200 mg PO BID [facility] Ceftriaxone Sodium 1,000 mg/ (Sodium Chloride) 50 mls @ 200 mls/hr IVPB Q24H [facility] Mometasone Furoate/Formoterol Fumar (Dulera 200/5 Mdi*) 2 puff INH BID [facility] Reason: Protocol Montelukast Sodium (Singulair Tab*) 10 mg PO DAILY [facility] Naproxen (Naprosyn Tab*) 500 mg PO Q12H PRN Reason: PAIN Prednisone (Deltasone Tab*) 60 mg PO DAILY [facility] Tiotropium [place] (Spiriva Cap.Inh*) 1 cap INH DAILY [facility] Vital Signs 07/08/16 07/08/16 07/08/16 12:49 13:53 14:45 Temperature Pulse Rate 90 Respiratory 16 16 Rate Blood Pressure (mmHg) O2 Sat by Pulse 91 98 Oximetry 07/08/16 07/08/16 07/08/16 14:51 16:45 18:50 Temperature 98.7 F 99.2 F Pulse Rate 98 92 Respiratory 16 18 Rate Blood Pressure 149/83 123/95 (mmHg) O2 Sat by Pulse 96 97 Oximetry 07/08/16 07/08/16 07/09/16 20:00 23:38 01:29 Temperature 101.1 F 97.8 F Pulse Rate 69 92 Respiratory 20 16 Rate Blood Pressure 143/78 (mmHg) O2 Sat by Pulse 97 96 Oximetry 07/09/16 07/09/16 07/09/16 07:45 08:07 09:36 Temperature 98.0 F Pulse Rate 74 78 Respiratory 16 18 18 Rate Blood Pressure 143/81 (mmHg) O2 Sat by Pulse 97 98 Oximetry Oxygen Devices in Use Now: Nasal Cannula - 2L Appearance: NAD, sitting up in bed Eyes: No Scleral Icterus Ears/Nose/Mouth/Throat: Mucous Membranes Moist Respiratory: Symmetrical Chest Expansion and Respiratory Effort, - - Lung sounds with exp wheeze bilateral Cardiovascular: NL Sounds; No Murmurs; No JVD, RRR Abdominal: NL Sounds; No Tenderness; No Distention Extremities: No Edema Skin: No Rash or Ulcers Neurological: Alert and Oriented x 3, NL Muscle Strength and Tone Lines/Tubes/Other Access: Clean, Dry and Intact Peripheral IV - site benign Nutrition: Taking PO's Result Diagrams: 07/09/16 05:58 07/06/16 06:54 Additional Lab and Data: . Microbiology and Other Data: Microbiology 07/05/16 18:55 Influenza Types A,B Antigen (TAVIA) - Final Nasal Specimen received for Influenza A/B Molecular testing Diagnostic Imaging: CXR - NAD Assess/Plan/Problems-Billing Assessment: Me. Mishra is a 61 yo female with COPD and depression who presented with complaints of SOB and cough which did not respond to outpatient oral steroids and antibiotics. - Patient Problems (1) COPD exacerbation Code(s): J44.1 - CHRONIC OBSTRUCTIVE PULMONARY DISEASE W (ACUTE) EXACERBATION SNOMED Code(s): 926553055 Comment: - Remains dyspneic with activity with 2L via NC - Pt was not on supplemental home O2, continue to wean O2 at rest - Suspect Pt could have chronic respiratory failure at baseline - Chest xray shows NAD, Blood cultures negative, day 3 - Continue scheduled Duonebs and home LABA/ICS, LAMA - Febrile overnight, temp 101.1 max - Continue Ceftriaxone - Continue Prednisone (2) Depression Code(s): F32.9 - MAJOR DEPRESSIVE DISORDER, SINGLE EPISODE, UNSPECIFIED SNOMED Code(s): 22387306 Comment: - Stable - Continue home medications (3) DVT prophylaxis Code(s): QCP6346 - SNOMED Code(s): 133056318 Comment: - Lovenox 40mg SQ qd (4) Full code status Code(s): Z78.9 - OTHER SPECIFIED HEALTH STATUS SNOMED Code(s): 071893253 Status and Disposition: Inpatient. Patient requires continued hospital care. Anticipate possible discharge in the morning.
[2016-07-09] MEDS: cefTRIAXone* 1 GM in NS 0.9% 50 ML BAG IVPB SCH (17:32)
[2016-07-09] MEDS: Enoxaparin(*) 40 MG/0.4 ML SYR SUBCUT SCH (17:33)
[2016-07-09] MEDS: Naproxen TAB* 250 MG PO PRN (20:16)
[2016-07-10] MEDS: Albuterol/Ipratropium NEB.SOL* Albuterol 2.5 MG/Ipratropium 0.5 MG 3 ML INH SCH ×3 (01:49→13:11)
[2016-07-10] MEDS: Tiotropium CAP.INH* CAP.INH/18 MCG INH SCH (07:35)
[2016-07-10] MEDS: Mometasone/Formoter 200/5 MDI INH SCH (07:35)
[2016-07-10] MEDS: guaiFENesin ER TAB 600 MG PO SCH (07:47)
[2016-07-10] MEDS: Cetirizine* 10 MG TAB PO SCH (07:47)
[2016-07-10] MEDS: predniSONE TAB* 20 MG PO SCH (07:47)
[2016-07-10] MEDS: FLUoxetine CAP* 20 MG PO SCH (07:47)
[2016-07-10] MEDS: Amphetamine MIXED SALT TAB* 10 MG TAB PO SCH (07:47)
[2016-07-10] MEDS: Cholecalciferol TAB* 1000 UNITS PO SCH (07:47)
[2016-07-10] MEDS: Montelukast Sodium TAB* 10 MG PO SCH (07:47)
[2016-07-10] MEDS: Calcium/Vitamin D TAB 250/125* TAB PO SCH (07:47)
[2016-07-10 08:49] VITALS: BP 134/88
--- NOTE | 2016-07-10 11:07 | PN ---
Subjective Date of Service: 07/10/16 Interval History: Patient seen and examined at bedside. Pt states that she feels better, but continues to get shortness of breath with exertion. She reports being able to ambulate a slow walk to the bathroom without difficulty, but if she attempts to ambulate in the halls at a faster pace, she develops shortness of breath and feels flush. Denies fever, chills, chest discomfort, N/V/D. Family History: Unchanged from Admission Social History: Unchanged from Admission Past Medical History: Unchanged from Admission Objective Active Medications: Acetaminophen (Tylenol Tab*) 650 mg PO Q4H PRN Reason: FEVER/PAIN Albuterol/Ipratropium (Duoneb (Albuterol 2.5 Mg/Ipratropium 0.5 Mg)) 1 neb INH [id number] AWAKE PRN Reason: sob/wheexing Albuterol/Ipratropium (Duoneb (Albuterol 2.5 Mg/Ipratropium 0.5 Mg)) 1 neb INH [id number] AWAKE [facility] Alprazolam (Xanax Tab*) 0.5 mg PO Q6H PRN Reason: anxiety/SOB Amphetamine/Dextroamphetamine (Adderall Tab*) 30 mg PO DAILY@0800 [facility] Calcium/Vitamin D (Oscal D Tab 250/125*) 1 tab PO DAILY [facility] Cetirizine HCl (Zyrtec*) 10 mg PO DAILY [facility] Reason: Protocol Cholecalciferol (Vitamin D Tab*) 2,000 units PO DAILY [facility] Enoxaparin Sodium (Lovenox(*)) 40 mg SUBCUT Q24H [facility] Fluoxetine HCl (Prozac Cap*) 40 mg PO DAILY [facility] Guaifenesin (Mucinex*) 1,200 mg PO BID [facility] Ceftriaxone Sodium 1,000 mg/ (Sodium Chloride) 50 mls @ 200 mls/hr IVPB Q24H [facility] Mometasone Furoate/Formoterol Fumar (Dulera 200/5 Mdi*) 2 puff INH BID [facility] Reason: Protocol Montelukast Sodium (Singulair Tab*) 10 mg PO DAILY [facility] Naproxen (Naprosyn Tab*) 500 mg PO Q12H PRN Reason: PAIN Prednisone (Deltasone Tab*) 60 mg PO DAILY [facility] Tiotropium [place] (Spiriva Cap.Inh*) 1 cap INH DAILY [facility] Vital Signs 07/09/16 07/09/16 07/09/16 14:20 15:39 19:40 Temperature 99.0 F Pulse Rate 98 97 92 Respiratory 16 16 Rate Blood Pressure 158/81 (mmHg) O2 Sat by Pulse 92 97 Oximetry 07/09/16 07/09/16 07/09/16 20:00 20:22 23:18 Temperature 99.5 F 98.2 F Pulse Rate 87 92 Respiratory 20 16 18 Rate Blood Pressure 152/65 124/66 (mmHg) O2 Sat by Pulse 91 94 Oximetry 07/10/16 07/10/16 07/10/16 03:26 07:29 07:37 Temperature 98.3 F 98.1 F Pulse Rate 85 78 90 Respiratory 16 16 14 Rate Blood Pressure 136/75 134/88 (mmHg) O2 Sat by Pulse 94 95 99 Oximetry 07/10/16 08:49 Temperature Pulse Rate Respiratory 18 Rate Blood Pressure (mmHg) O2 Sat by Pulse Oximetry Oxygen Devices in Use Now: None - at rest Appearance: NAD, sitting up in bed Eyes: No Scleral Icterus Respiratory: Symmetrical Chest Expansion and Respiratory Effort, Clear to Auscultation - , few exp wheeze Cardiovascular: NL Sounds; No Murmurs; No JVD, RRR Abdominal: NL Sounds; No Tenderness; No Distention Extremities: No Edema Skin: No Rash or Ulcers Neurological: Alert and Oriented x 3, NL Muscle Strength and Tone Nutrition: Taking PO's Result Diagrams: 07/09/16 05:58 07/06/16 06:54 Additional Lab and Data: . Microbiology and Other Data: Microbiology 07/05/16 18:55 Influenza Types A,B Antigen (TAVIA) - Final Nasal Specimen received for Influenza A/B Molecular testing Diagnostic Imaging: CXR - NAD Assess/Plan/Problems-Billing Assessment: Me. Mishra is a 61 yo female with COPD and depression who presented with complaints of SOB and cough which did not respond to outpatient oral steroids and antibiotics. - Patient Problems (1) COPD exacerbation Code(s): J44.1 - CHRONIC OBSTRUCTIVE PULMONARY DISEASE W (ACUTE) EXACERBATION SNOMED Code(s): 103958065 Comment: - Remains dyspneic with activity with 2L via NC - Pt was not on supplemental home O2 - Suspect Pt could have chronic respiratory failure at baseline - Chest xray shows NAD, Blood cultures negative, day 4 - Continue home LABA/ICS, LAMA and PRN nebs at home - afebrile for greater than 24 hours - Stop Ceftriaxone, completed a 5 day course of IV ABX - Continue Prednisone taper (2) Depression Code(s): F32.9 - MAJOR DEPRESSIVE DISORDER, SINGLE EPISODE, UNSPECIFIED SNOMED Code(s): 97686363 Comment: - Stable - Continue home medications (3) DVT prophylaxis Code(s): ODD5271 - SNOMED Code(s): 104246722 Comment: (4) Full code status Code(s): Z78.9 - OTHER SPECIFIED HEALTH STATUS SNOMED Code(s): 314835611 Status and Disposition: Inpatient. Stable for discharge to home later today.
--- NOTE | 2016-07-11 05:30 | DS ---
DISCHARGE SUMMARY: DATE OF ADMISSION: 07/05/16 DATE OF DISCHARGE: 07/10/16 ATTENDING PHYSICIAN: Angel Cardenas MD* (dictated by Elton Thomas NP). PRIMARY CARE PROVIDER: Kg De La Rosa MD. PRIMARY DIAGNOSIS: Chronic obstructive pulmonary disease exacerbation. SECONDARY DIAGNOSES: 1. Depression. 2. Urge incontinence. 3. Vitamin D deficiency. 4. Osteoarthritis. 5. Cervical stenosis. STUDIES WHILE IN THE HOSPITAL: Chest x-ray on 07/05/16. Radiologist's impression: Findings consistent with COPD, no evidence for acute findings. DISCHARGE MEDICATIONS: New home medications: 1. Prednisone 20 mg tablets oral daily, take 50 mg daily x2 days, 40 mg daily x2 days, 30 mg oral daily x2 days, 20 mg oral daily x2 days, 10 mg oral daily x2 days, and then stop. 2. Mucinex 1200 mg oral twice daily as needed for cough. Continued home medications: 1. Singulair 10 mg oral daily. 2. Prozac 40 mg oral daily. 3. Adderall 30 mg 1 tablet oral daily. 4. Albuterol HFA inhaler 2 puffs inhalation every 4 hours as needed for shortness of breath or wheeze. 5. Asmanex 2 puffs inhalation daily at bedtime. 6. Symbicort 160/4.5 mcg 2 puffs inhalation twice daily. 7. Ventolin nebulizer 2.5 mg inhalation every 4 hours as needed for shortness of breath or wheeze. 8. Xanax 0.5 mg oral every 6 hours as needed for shortness of breath or anxiety. 9. Zyrtec 10 mg oral daily. 10. Vitamin D 2000 units oral daily. 11. Calcium plus D3 600/200 one tablet oral daily. 12. Spiriva 1 capsule oral daily. HISTORY OF PRESENT ILLNESS/HOSPITAL COURSE: Ms. Mishra is a 61-year-old female with past medical history significant for COPD and depression who presented to the emergency room with complaints of progressive shortness of breath. The patient had been seen at Urgent Care approximately 4 days prior to her presentation and was started on prednisone and doxycycline and had been taking it as directed. The patient reports that she had been tapering the prednisone. The patient felt that she had never had improvement of her symptoms after starting the steroids and antibiotics. She was also using an albuterol nebulizer at home for her symptoms. The patient felt that she had had symptoms for approximately 10 days that had started with a sore throat and cough. She had fevers one night, but otherwise had been afebrile. The patient presented to the emergency room for further evaluation of her symptoms. While in the emergency room, the patient had EKG showing a sinus rhythm with a QTc of 500, chest x-ray showing no acute changes with chronic changes consistent with COPD. The patient had labs that were significant for white blood cell count of 12,000. She had an ABG that was unremarkable, with a pH of 7.41, pCO2 of 41, pO2 of 83, and bicarb of 25. The patient had unremarkable comprehensive metabolic panel. She had a normal lactic acid. Transaminase and total bilirubin were within normal limits. The patient had a troponin that was negative at 0.01. Hospitalists were asked to evaluate the patient for admission for COPD exacerbation. While in the hospital, the patient was started on ceftriaxone and IV Solu- Medrol. During her stay, she remained afebrile with the exception of one isolated temperature of 101.1 overnight on the night of July 08. The patient 's white blood cell count remained at 12.2. I suspect this is related to the patient's steroid use. The patient had influenza testing that was negative. The patient also had blood cultures drawn that had no growth on day 5. The patient was requiring supplemental oxygen. She was able to be weaned from her supplemental oxygen at rest, but was requiring 2 L of oxygen for ambulation. The patient was found to have oxygen saturation of 88% with ambulation. The patient also had increased dyspnea with exertion, although this did improve during her stay. She continued to have shortness of breath with exertion when she walked in the halls at a fast pace. The patient was set up to be discharged to home with oxygen for exertion. Ms. Mishra is stable for discharge to home today. Vital signs are as follows: Temperature 98.1, heart rate 90, respiratory rate 15, and O2 sat 99% on room air at rest. DISCHARGE PLAN: Ms. Mishra will be discharged to home. Activity as tolerated. Regular diet. As far as the patient's COPD, she should be continued on her home Asmanex, Singulair, Zyrtec, Spiriva, and Symbicort. The patient has been started on a prednisone taper. She has been instructed to take 50 mg oral daily for 2 days, followed by 40 mg oral daily for 2 days, 30 mg oral daily for 2 days, 20 mg oral daily for 2 days, and 10 mg oral daily for 2 days, and then stop. The patient has been encouraged to keep her appointment with her director of safety, Dr. Grace, on August 04. The patient has a followup appointment scheduled with her primary care doctor, Dr. De La Rosa, on July 15 at 8:20 a.m. Due to the patient's continued shortness of breath with exertion, the patient has been given work note to be out of work until July 15 when she is able to see her primary care provider in followup. The patient has been continued on the rest of her usual home medications. This is a summarized report of complex medical history and hospital stay. For further details please see the entire medical record. TIME SPENT: Time for this discharge was 50 minutes, and 25 minutes were spent face- to-face with the patient, discussing discharge plans and instructions. CONDITION ON DISCHARGE: Stable. ELTON MOSER NP CC: Dr. De La Rosa* [id number]/[facility] #: [id number] O[place]INKA
== END 2016-07-10 15:45 | disposition home or self-care (01) | DRG 140 ==
LOC: ED 15:06 → MED 16:52 → OBSVTOIN 07-06 11:15 → MED 07-07 14:49
PROVIDERS: ADMIT Internal Medicine; ATTEND Internal Medicine
DX: J44.1 Chronic obstructive pulmonary disease with (acute) exacerbation (principal); M48.02 Spinal stenosis, cervical region; E55.9 Vitamin D deficiency, unspecified; F32.9 Major depressive disorder, single episode, unspecified; N39.41 Urge incontinence; M19.90 Unspecified osteoarthritis, unspecified site; R06.00 Dyspnea, unspecified; Z79.899 Other long term (current) drug therapy; Z87.891 Personal history of nicotine dependence
CPT/HCPCS: 36415; 71020; 80048; 80053; 82803; 83605; 83880; 84484; 85025; 87040; 87502; 93005; 94640; 94760; A9270-GY; G0378; J0692; J0696; J1650; J2930; J7512

== ENCOUNTER 2020-09-09 09:35 | Inpatient (IN) ==
[2020-09-09 10:12] LABS: ABS Eosinophils 0.1 10^3/ul (0-0.6); ABS Lymphocytes 1.8 10^3/ul (1.0-4.8); ABS Monocytes 0.8 10^3/ul (0-0.8); ABS Neutrophils 10.4 10^3/ul (1.5-7.7); Eosinophil % 0.8 %; Hematocrit 39 % (35-47); Hemoglobin 13.4 g/dL (12.0-16.0); Lymphocyte % 13.4 %; Mean Corpuscular HGB Conc 35 g/dL (31-36); Mean Corpuscular Hemoglobin 33 pg (27-31); Mean Corpuscular Volume 95 fL (80-97); Mean Platelet Volume 7.8 fL (7.4-10.4); Platelet Count 181 10^3/uL (150-450); Red Blood Count 4.08 10^6 /uL (3.70-4.87); Red Cell Distribution Width 14 % (10-15); White Blood Count 13.2 10^3/uL (3.5-10.8)
[2020-09-09 10:29] LABS: Albumin 3.8 g/dL (3.2-5.2); Calcium 9.2 mg/dL (8.6-10.3); Potassium 4.1 mmol/L (3.5-5.0); Total Bilirubin 0.9 mg/dL (0.2-1.0)
[2020-09-09 10:35] LABS: Albumin/Globulin Ratio 1.5 (1-3); EGFR African American 57.5 (>60); EGFR Non-African American 47.5 (>60); Globulin 2.5 g/dL (2-4); Total Protein 6.3 g/dL (6.4-8.9)
[2020-09-09] MEDS ORDERED: Morphine 4 MG/ML VIAL (1 ml) IV ONE (14:35)
[2020-09-09] MEDS ORDERED: Albuterol HFA INHALER 8 gm MDI INH PRN (14:46)
[2020-09-09] MEDS ORDERED: Calcium Carb (TUMS) 500 mg CHEW TAB PO PRN (14:46)
[2020-09-09] MEDS: Enoxaparin 40 MG/0.4 ML SYR SUBCUT SCH (15:11)
[2020-09-09] MEDS: oxyCODONE/Acetamin 5/325 mg TAB PO PRN (18:11)
[2020-09-09] MEDS: Morphine 2 MG/ML SYRINGE IV PRN (18:15)
[2020-09-09 23:37] LABS: Urine Appearance Cloudy; Urine Bilirubin Negative (Negative); Urine Blood Negative (Negative); Urine Color Yellow; Urine Glucose Negative (Negative); Urine Ketones Negative (Negative); Urine Nitrite Negative (Negative); Urine Protein Negative (Negative); Urine Specific Gravity 1.028 (1.002-1.030); Urine Urobilinogen Negative (Negative)
[2020-09-10] MEDS: oxyCODONE/Acetamin 5/325 mg TAB PO PRN ×4 (00:09→22:01)
[2020-09-10 06:26] LABS: ABS Lymphocytes 1.5 10^3/ul (1.0-4.8); ABS Monocytes 0.7 10^3/ul (0-0.8); ABS Neutrophils 11.9 10^3/ul (1.5-7.7); Eosinophil % 0.1 %; Hematocrit 41 % (35-47); Hemoglobin 13.9 g/dL (12.0-16.0); Lymphocyte % 10.5 %; Mean Corpuscular HGB Conc 34 g/dL (31-36); Mean Corpuscular Hemoglobin 33 pg (27-31); Mean Corpuscular Volume 97 fL (80-97); Platelet Count 196 10^3/uL (150-450); Red Blood Count 4.26 10^6 /uL (3.70-4.87); Red Cell Distribution Width 14 % (10-15); White Blood Count 14.1 10^3/uL (3.5-10.8)
[2020-09-10 06:42] LABS: Calcium 9.3 mg/dL (8.6-10.3); EGFR African American 76.5 (>60); EGFR Non-African American 63.3 (>60); Potassium 4.6 mmol/L (3.5-5.0)
[2020-09-10] MEDS: Morphine 2 MG/ML SYRINGE IV PRN ×2 (08:11→12:32)
[2020-09-10 09:00] LABS: Vitamin D Total 25(OH) 28.5 ng/mL (20-50)
[2020-09-10] MEDS: FLUTICAS/UMECLI/VILANT 200-62.5-25 MDI (NF) INH SCH (09:59)
[2020-09-10] MEDS: Vitamin THERAPEUTIC TAB PO SCH (10:00)
[2020-09-10] MEDS: Cholecalciferol (VIT D3) 1,000 unit TAB PO SCH (10:00)
[2020-09-10] MEDS: Amphetamine MIXED SALT 10mgTAB PO SCH (10:51)
[2020-09-10] MEDS ORDERED: Morphine 2 MG/ML SYRINGE IV PRN (14:10)
[2020-09-10] MEDS ORDERED: Morphine 2 MG/ML SYRINGE IV ONE (14:11)
[2020-09-10] MEDS ORDERED: Morphine 2 MG/ML SYRINGE ONE (14:16)
[2020-09-10] MEDS: Enoxaparin 40 MG/0.4 ML SYR SUBCUT SCH (15:06)
[2020-09-10] MEDS: Senna TAB 8.6 mg TAB PO PRN (22:01)
[2020-09-10] MEDS: Lidocaine PATCH 5% PATCH TRANSDERM SCH (22:01)
[2020-09-10] MEDS: Lidocaine Patch REMOVE PATCH PATCH OFF SCH (22:06)
[2020-09-11] MEDS: oxyCODONE/Acetamin 5/325 mg TAB PO PRN ×3 (04:06→23:19)
[2020-09-11 06:42] LABS: ABS Basophils 0.1 10^3/ul (0-0.2); ABS Eosinophils 0.4 10^3/ul (0-0.6); ABS Lymphocytes 3.1 10^3/ul (1.0-4.8); ABS Neutrophils 9.8 10^3/ul (1.5-7.7); Eosinophil % 2.8 %; Hematocrit 42 % (35-47); Hemoglobin 14.2 g/dL (12.0-16.0); Lymphocyte % 21.4 %; Mean Corpuscular HGB Conc 34 g/dL (31-36); Mean Corpuscular Hemoglobin 33 pg (27-31); Mean Corpuscular Volume 98 fL (80-97); Mean Platelet Volume 8.6 fL (7.4-10.4); Platelet Count 206 10^3/uL (150-450); Red Cell Distribution Width 14 % (10-15); White Blood Count 14.4 10^3/uL (3.5-10.8)
[2020-09-11 06:59] LABS: Calcium 9.7 mg/dL (8.6-10.3); EGFR African American 57.5 (>60); EGFR Non-African American 47.5 (>60); Potassium 4.3 mmol/L (3.5-5.0)
[2020-09-11] MEDS: Lidocaine PATCH 5% PATCH TRANSDERM SCH (08:31)
[2020-09-11] MEDS: Amphetamine MIXED SALT 10mgTAB PO SCH (08:32)
[2020-09-11] MEDS: Cholecalciferol (VIT D3) 1,000 unit TAB PO SCH (08:32)
[2020-09-11] MEDS: Vitamin THERAPEUTIC TAB PO SCH (08:33)
[2020-09-11] MEDS: FLUTICAS/UMECLI/VILANT 200-62.5-25 MDI (NF) INH SCH (08:36)
[2020-09-11] MEDS: Ondansetron 4 mg VIAL 2 MG/ML 2 ml VIAL IV PRN ×2 (10:12→15:02)
[2020-09-11] MEDS: Enoxaparin 40 MG/0.4 ML SYR SUBCUT SCH (15:02)
[2020-09-11] MEDS: Polyethylene Glycol 3350 17 GM PACKET PO PRN (23:17)
[2020-09-11] MEDS: Lidocaine Patch REMOVE PATCH PATCH OFF SCH (23:18)
[2020-09-11] MEDS: Senna TAB 8.6 mg TAB PO PRN (23:19)
[2020-09-12] MEDS: oxyCODONE/Acetamin 5/325 mg TAB PO PRN ×2 (10:07→20:33)
[2020-09-12] MEDS: Magnesium Hydroxide LIQ 30 ML UDC PO PRN (10:08)
[2020-09-12] MEDS: Polyethylene Glycol 3350 17 GM PACKET PO PRN (10:08)
[2020-09-12] MEDS: Amphetamine MIXED SALT 10mgTAB PO SCH (10:09)
[2020-09-12] MEDS: Cholecalciferol (VIT D3) 1,000 unit TAB PO SCH (10:09)
[2020-09-12] MEDS: Lidocaine PATCH 5% PATCH TRANSDERM SCH (10:10)
[2020-09-12] MEDS: Vitamin THERAPEUTIC TAB PO SCH (10:11)
[2020-09-12] MEDS: FLUTICAS/UMECLI/VILANT 200-62.5-25 MDI (NF) INH SCH (10:14)
[2020-09-12] MEDS: Enoxaparin 40 MG/0.4 ML SYR SUBCUT SCH (15:08)
[2020-09-12] MEDS: Lidocaine Patch REMOVE PATCH PATCH OFF SCH (20:43)
[2020-09-13 06:16] LABS: ABS Eosinophils 0.3 10^3/ul (0-0.6); ABS Lymphocytes 1.9 10^3/ul (1.0-4.8); ABS Monocytes 0.5 10^3/ul (0-0.8); Eosinophil % 3.9 %; Hematocrit 37 % (35-47); Hemoglobin 12.6 g/dL (12.0-16.0); Lymphocyte % 24.6 %; Mean Corpuscular HGB Conc 34 g/dL (31-36); Mean Corpuscular Hemoglobin 33 pg (27-31); Mean Corpuscular Volume 97 fL (80-97); Mean Platelet Volume 8.4 fL (7.4-10.4); Platelet Count 140 10^3/uL (150-450); Red Blood Count 3.81 10^6 /uL (3.70-4.87); Red Cell Distribution Width 14 % (10-15); White Blood Count 7.6 10^3/uL (3.5-10.8)
[2020-09-13] MEDS: oxyCODONE/Acetamin 5/325 mg TAB PO PRN ×2 (07:39→15:26)
[2020-09-13] MEDS: Amphetamine MIXED SALT 10mgTAB PO SCH (08:48)
[2020-09-13] MEDS: Lidocaine PATCH 5% PATCH TRANSDERM SCH (08:49)
[2020-09-13] MEDS: Vitamin THERAPEUTIC TAB PO SCH (08:49)
[2020-09-13] MEDS: Cholecalciferol (VIT D3) 1,000 unit TAB PO SCH (08:49)
[2020-09-13] MEDS: FLUTICAS/UMECLI/VILANT 200-62.5-25 MDI (NF) INH SCH (10:53)
[2020-09-13] MEDS: Enoxaparin 40 MG/0.4 ML SYR SUBCUT SCH (15:26)
[2020-09-13] MEDS: Lidocaine Patch REMOVE PATCH PATCH OFF SCH (20:58)
[2020-09-14 08:09] VITALS: BP 125/80
[2020-09-14] MEDS: Amphetamine MIXED SALT 10mgTAB PO SCH (08:30)
[2020-09-14] MEDS: Vitamin THERAPEUTIC TAB PO SCH (08:31)
[2020-09-14] MEDS: Cholecalciferol (VIT D3) 1,000 unit TAB PO SCH (08:31)
[2020-09-14] MEDS: FLUTICAS/UMECLI/VILANT 200-62.5-25 MDI (NF) INH SCH (08:36)
[2020-09-14] MEDS: Lidocaine PATCH 5% PATCH TRANSDERM SCH (08:55)
[2020-09-14] MEDS: Magnesium Hydroxide LIQ 30 ML UDC PO PRN (09:52)
[2020-09-14] MEDS: oxyCODONE/Acetamin 5/325 mg TAB PO PRN (09:53)
[2020-09-14] MEDS: Polyethylene Glycol 3350 17 GM PACKET PO PRN (09:53)
== END 2020-09-14 10:07 | DRG 341 ==
LOC: ED 09:35 → SSU 09:35 → INTOOBSV 14:51 → OBSVTOIN 14:51 → SSU 16:05
PROVIDERS: ADMIT Internal Medicine; ATTEND Internal Medicine

== ENCOUNTER 2020-09-14 10:08 | Inpatient (IN) ==
[~2020-09-14 10:08] MED LIST: Al Hydrox/Mg Hydrox/Simet LIQ 30 ML UDC PO PRN; Calcium Carb (TUMS) 500 mg CHEW TAB PO PRN; Magnesium Hydroxide LIQ 30 ML UDC PO PRN; Polyethylene Glycol 3350 17 GM PACKET PO PRN; Senna TAB 8.6 mg TAB PO PRN; oxyCODONE/Acetamin 5/325 mg TAB PO PRN
[2020-09-14] MEDS ORDERED: Morphine 2 MG/ML SYRINGE IV PRN (10:26)
[2020-09-14] MEDS: Cholecalciferol (VIT D3) 1,000 unit TAB PO SCH (11:05)
[2020-09-14] MEDS: Lidocaine PATCH 5% PATCH TRANSDERM SCH (11:06)
[2020-09-14] MEDS: Vitamin THERAPEUTIC TAB PO SCH (11:06)
[2020-09-14] MEDS: Enoxaparin 40 MG/0.4 ML SYR SUBCUT SCH (11:34)
[2020-09-14] MEDS: oxyCODONE/Acetamin 5/325 mg TAB PO PRN (19:05)
[2020-09-14] MEDS: Lidocaine Patch REMOVE PATCH PATCH OFF SCH (21:06)
[2020-09-15] MEDS: oxyCODONE/Acetamin 5/325 mg TAB PO PRN ×3 (05:37→15:47)
[2020-09-15 06:56] LABS: ABS Eosinophils 0.3 10^3/ul (0-0.6); ABS Lymphocytes 1.9 10^3/ul (1.0-4.8); ABS Monocytes 0.5 10^3/ul (0-0.8); ABS Neutrophils 4.4 10^3/ul (1.5-7.7); Hematocrit 34 % (35-47); Hemoglobin 11.8 g/dL (12.0-16.0); Lymphocyte % 26.6 %; Mean Corpuscular HGB Conc 35 g/dL (31-36); Mean Corpuscular Hemoglobin 33 pg (27-31); Mean Corpuscular Volume 95 fL (80-97); Mean Platelet Volume 7.9 fL (7.4-10.4); Platelet Count 204 10^3/uL (150-450); Red Blood Count 3.55 10^6 /uL (3.70-4.87); Red Cell Distribution Width 14 % (10-15); White Blood Count 7.1 10^3/uL (3.5-10.8)
[2020-09-15 07:12] LABS: Albumin 3.3 g/dL (3.2-5.2); Albumin/Globulin Ratio 1.3 (1-3); Calcium 8.7 mg/dL (8.6-10.3); EGFR Non-African American 90.9 (>60); Globulin 2.5 g/dL (2-4); Potassium 4.6 mmol/L (3.5-5.0); Total Bilirubin 0.3 mg/dL (0.2-1.0); Total Protein 5.8 g/dL (6.4-8.9)
[2020-09-15] MEDS: Vitamin THERAPEUTIC TAB PO SCH (08:31)
[2020-09-15] MEDS: Amphetamine MIXED SALT 10mgTAB PO SCH (08:31)
[2020-09-15] MEDS: Cholecalciferol (VIT D3) 1,000 unit TAB PO SCH (08:31)
[2020-09-15] MEDS: Lidocaine PATCH 5% PATCH TRANSDERM SCH (08:47)
[2020-09-15] MEDS ORDERED: [UNRECOGNIZED DRUG - OTHER] INH SCH (09:00)
[2020-09-15] MEDS: Enoxaparin 40 MG/0.4 ML SYR SUBCUT SCH (09:53)
[2020-09-15] MEDS: [UNRECOGNIZED DRUG - OTHER] INH SCH (09:54)
[2020-09-15] MEDS: Albuterol HFA INHALER 8 gm MDI INH PRN (13:10)
[2020-09-15] MEDS: Morphine ORAL.SOLN 10 mg 2 mg/ml UDC 5 ml (10 mg) PO PRN (20:14)
[2020-09-15] MEDS: Lidocaine Patch REMOVE PATCH PATCH OFF SCH (20:15)
[2020-09-16] MEDS: Morphine ORAL.SOLN 10 mg 2 mg/ml UDC 5 ml (10 mg) PO PRN ×4 (06:44→20:20)
[2020-09-16] MEDS: Amphetamine MIXED SALT 10mgTAB PO SCH (08:21)
[2020-09-16] MEDS: Cholecalciferol (VIT D3) 1,000 unit TAB PO SCH (08:21)
[2020-09-16] MEDS: Vitamin THERAPEUTIC TAB PO SCH (08:21)
[2020-09-16] MEDS: Lidocaine PATCH 5% PATCH TRANSDERM SCH (08:22)
[2020-09-16] MEDS: [UNRECOGNIZED DRUG - OTHER] INH SCH (08:30)
[2020-09-16] MEDS: Enoxaparin 40 MG/0.4 ML SYR SUBCUT SCH (11:06)
[2020-09-16] MEDS: Lidocaine Patch REMOVE PATCH PATCH OFF SCH (20:21)
[2020-09-17] MEDS: Amphetamine MIXED SALT 10mgTAB PO SCH (08:22)
[2020-09-17] MEDS: Cholecalciferol (VIT D3) 1,000 unit TAB PO SCH (08:22)
[2020-09-17] MEDS: Vitamin THERAPEUTIC TAB PO SCH (08:23)
[2020-09-17] MEDS: Lidocaine PATCH 5% PATCH TRANSDERM SCH (08:24)
[2020-09-17] MEDS: [UNRECOGNIZED DRUG - OTHER] INH SCH (08:24)
[2020-09-17] MEDS: Albuterol HFA INHALER 8 gm MDI INH PRN (09:40)
[2020-09-17] MEDS: Morphine ORAL.SOLN 10 mg 2 mg/ml UDC 5 ml (10 mg) PO PRN ×3 (09:45→23:41)
[2020-09-17] MEDS: Enoxaparin 40 MG/0.4 ML SYR SUBCUT SCH (09:47)
[2020-09-17] MEDS: Lidocaine Patch REMOVE PATCH PATCH OFF SCH (20:46)
[2020-09-17] MEDS: Albuterol 2.5mg/3 ml (0.083%) NEB.SOLN INH PRN (22:44)
[2020-09-18] MEDS: Vitamin THERAPEUTIC TAB PO SCH (08:12)
[2020-09-18] MEDS: Cholecalciferol (VIT D3) 1,000 unit TAB PO SCH (08:13)
[2020-09-18] MEDS: Amphetamine MIXED SALT 10mgTAB PO SCH (08:13)
[2020-09-18] MEDS: [UNRECOGNIZED DRUG - OTHER] INH SCH (08:16)
[2020-09-18] MEDS: Lidocaine PATCH 5% PATCH TRANSDERM SCH (08:17)
[2020-09-18] MEDS: Morphine ORAL.SOLN 10 mg 2 mg/ml UDC 5 ml (10 mg) PO PRN ×4 (08:54→23:44)
[2020-09-18] MEDS: Enoxaparin 40 MG/0.4 ML SYR SUBCUT SCH (11:40)
[2020-09-18] MEDS: Albuterol 2.5mg/3 ml (0.083%) NEB.SOLN INH PRN (17:30)
[2020-09-18] MEDS: Lidocaine Patch REMOVE PATCH PATCH OFF SCH (21:15)
[2020-09-19] MEDS: Morphine ORAL.SOLN 10 mg 2 mg/ml UDC 5 ml (10 mg) PO PRN ×3 (05:48→19:23)
[2020-09-19] MEDS: Cholecalciferol (VIT D3) 1,000 unit TAB PO SCH (08:18)
[2020-09-19] MEDS: Amphetamine MIXED SALT 10mgTAB PO SCH (08:18)
[2020-09-19] MEDS: Vitamin THERAPEUTIC TAB PO SCH (08:19)
[2020-09-19] MEDS: [UNRECOGNIZED DRUG - OTHER] INH SCH (08:21)
[2020-09-19] MEDS: Lidocaine PATCH 5% PATCH TRANSDERM SCH (08:22)
[2020-09-19] MEDS: Enoxaparin 40 MG/0.4 ML SYR SUBCUT SCH (11:25)
[2020-09-19] MEDS: Lidocaine Patch REMOVE PATCH PATCH OFF SCH (19:25)
[2020-09-20] MEDS: Morphine ORAL.SOLN 10 mg 2 mg/ml UDC 5 ml (10 mg) PO PRN ×5 (00:49→23:51)
[2020-09-20] MEDS: Vitamin THERAPEUTIC TAB PO SCH (09:22)
[2020-09-20] MEDS: Amphetamine MIXED SALT 10mgTAB PO SCH (09:23)
[2020-09-20] MEDS: Enoxaparin 40 MG/0.4 ML SYR SUBCUT SCH (09:24)
[2020-09-20] MEDS: Cholecalciferol (VIT D3) 1,000 unit TAB PO SCH (09:24)
[2020-09-20] MEDS: [UNRECOGNIZED DRUG - OTHER] INH SCH (09:25)
[2020-09-20] MEDS: Lidocaine PATCH 5% PATCH TRANSDERM SCH (09:27)
[2020-09-20] MEDS: Albuterol 2.5mg/3 ml (0.083%) NEB.SOLN INH PRN (19:53)
[2020-09-20] MEDS: Lidocaine Patch REMOVE PATCH PATCH OFF SCH (21:04)
[2020-09-21] MEDS: Morphine ORAL.SOLN 10 mg 2 mg/ml UDC 5 ml (10 mg) PO PRN ×3 (05:10→18:58)
[2020-09-21] MEDS: [UNRECOGNIZED DRUG - OTHER] INH SCH (08:17)
[2020-09-21] MEDS: Vitamin THERAPEUTIC TAB PO SCH (08:18)
[2020-09-21] MEDS: Lidocaine PATCH 5% PATCH TRANSDERM SCH (08:18)
[2020-09-21] MEDS: Amphetamine MIXED SALT 10mgTAB PO SCH (08:18)
[2020-09-21] MEDS: Cholecalciferol (VIT D3) 1,000 unit TAB PO SCH (08:18)
[2020-09-21] MEDS: Enoxaparin 40 MG/0.4 ML SYR SUBCUT SCH (12:18)
[2020-09-21] MEDS: Lidocaine Patch REMOVE PATCH PATCH OFF SCH (21:11)
[2020-09-22] MEDS: Morphine ORAL.SOLN 10 mg 2 mg/ml UDC 5 ml (10 mg) PO PRN ×4 (05:31→18:38)
[2020-09-22 05:57] LABS: ABS Basophils 0.1 10^3/ul (0-0.2); ABS Eosinophils 0.3 10^3/ul (0-0.6); ABS Lymphocytes 2.3 10^3/ul (1.0-4.8); ABS Monocytes 0.7 10^3/ul (0-0.8); ABS Neutrophils 4.6 10^3/ul (1.5-7.7); Eosinophil % 4.1 %; Hematocrit 33 % (35-47); Hemoglobin 11.2 g/dL (12.0-16.0); Lymphocyte % 29.3 %; Mean Corpuscular HGB Conc 34 g/dL (31-36); Mean Corpuscular Hemoglobin 33 pg (27-31); Mean Corpuscular Volume 96 fL (80-97); Platelet Count 352 10^3/uL (150-450); Red Blood Count 3.46 10^6 /uL (3.70-4.87); Red Cell Distribution Width 13 % (10-15); White Blood Count 7.9 10^3/uL (3.5-10.8)
[2020-09-22 06:14] LABS: Albumin 3.3 g/dL (3.2-5.2); Albumin/Globulin Ratio 1.3 (1-3); Calcium 8.7 mg/dL (8.6-10.3); EGFR African American 102.7 (>60); EGFR Non-African American 84.9 (>60); Globulin 2.6 g/dL (2-4); Potassium 4.3 mmol/L (3.5-5.0); Total Bilirubin 0.3 mg/dL (0.2-1.0); Total Protein 5.9 g/dL (6.4-8.9)
[2020-09-22] MEDS: Cholecalciferol (VIT D3) 1,000 unit TAB PO SCH (08:37)
[2020-09-22] MEDS: Vitamin THERAPEUTIC TAB PO SCH (08:37)
[2020-09-22] MEDS: [UNRECOGNIZED DRUG - OTHER] INH SCH (08:39)
[2020-09-22] MEDS: Lidocaine PATCH 5% PATCH TRANSDERM SCH (08:40)
[2020-09-22] MEDS: Enoxaparin 40 MG/0.4 ML SYR SUBCUT SCH (11:55)
[2020-09-22] MEDS ORDERED: Iodixanol (CONTRAST) 320 MG/ML 100 ML SDV IV ONE (13:31)
[2020-09-22] MEDS: Lidocaine Patch REMOVE PATCH PATCH OFF SCH (20:12)
[2020-09-23] MEDS: Morphine ORAL.SOLN 10 mg 2 mg/ml UDC 5 ml (10 mg) PO PRN ×5 (00:01→18:41)
[2020-09-23] MEDS: Vitamin THERAPEUTIC TAB PO SCH (08:20)
[2020-09-23] MEDS: Amphetamine MIXED SALT 10mgTAB PO SCH (08:22)
[2020-09-23] MEDS: Cholecalciferol (VIT D3) 1,000 unit TAB PO SCH (08:22)
[2020-09-23] MEDS: Lidocaine PATCH 5% PATCH TRANSDERM SCH (08:25)
[2020-09-23] MEDS: [UNRECOGNIZED DRUG - OTHER] INH SCH (08:25)
[2020-09-23] MEDS: Enoxaparin 40 MG/0.4 ML SYR SUBCUT SCH (11:05)
[2020-09-23] MEDS: Albuterol 2.5mg/3 ml (0.083%) NEB.SOLN INH PRN (21:17)
[2020-09-23] MEDS: Lidocaine Patch REMOVE PATCH PATCH OFF SCH (21:18)
[2020-09-24] MEDS: Morphine ORAL.SOLN 10 mg 2 mg/ml UDC 5 ml (10 mg) PO PRN ×6 (00:14→22:00)
[2020-09-24] MEDS: Amphetamine MIXED SALT 10mgTAB PO SCH (08:41)
[2020-09-24] MEDS: Cholecalciferol (VIT D3) 1,000 unit TAB PO SCH (08:41)
[2020-09-24] MEDS: Vitamin THERAPEUTIC TAB PO SCH (08:42)
[2020-09-24] MEDS: Lidocaine PATCH 5% PATCH TRANSDERM SCH (08:42)
[2020-09-24] MEDS: [UNRECOGNIZED DRUG - OTHER] INH SCH (08:42)
[2020-09-24] MEDS: Enoxaparin 40 MG/0.4 ML SYR SUBCUT SCH (12:24)
[2020-09-24] MEDS: Albuterol HFA INHALER 8 gm MDI INH PRN (20:21)
[2020-09-24] MEDS: Lidocaine Patch REMOVE PATCH PATCH OFF SCH (20:27)
[2020-09-25] MEDS: Morphine ORAL.SOLN 10 mg 2 mg/ml UDC 5 ml (10 mg) PO PRN ×3 (04:21→17:57)
[2020-09-25] MEDS: Cholecalciferol (VIT D3) 1,000 unit TAB PO SCH (07:26)
[2020-09-25] MEDS: Amphetamine MIXED SALT 10mgTAB PO SCH (07:26)
[2020-09-25] MEDS: Vitamin THERAPEUTIC TAB PO SCH (07:26)
[2020-09-25] MEDS: [UNRECOGNIZED DRUG - OTHER] INH SCH (07:28)
[2020-09-25] MEDS: Lidocaine PATCH 5% PATCH TRANSDERM SCH (07:29)
[2020-09-25] MEDS: Enoxaparin 40 MG/0.4 ML SYR SUBCUT SCH (11:26)
[2020-09-25] MEDS: Lidocaine Patch REMOVE PATCH PATCH OFF SCH (20:41)
[2020-09-26] MEDS: Cholecalciferol (VIT D3) 1,000 unit TAB PO SCH (08:19)
[2020-09-26] MEDS: Vitamin THERAPEUTIC TAB PO SCH (08:19)
[2020-09-26] MEDS: Amphetamine MIXED SALT 10mgTAB PO SCH (08:20)
[2020-09-26] MEDS: [UNRECOGNIZED DRUG - OTHER] INH SCH (08:21)
[2020-09-26] MEDS: Morphine ORAL.SOLN 10 mg 2 mg/ml UDC 5 ml (10 mg) PO PRN ×4 (08:24→21:24)
[2020-09-26] MEDS: Albuterol HFA INHALER 8 gm MDI INH PRN (09:31)
[2020-09-26] MEDS: Enoxaparin 40 MG/0.4 ML SYR SUBCUT SCH (11:31)
[2020-09-26] MEDS: Acetaminop/Codeine 300mg/30mg TAB PO SCH ×3 (14:20→23:58)
[2020-09-26] MEDS: Albuterol 2.5mg/3 ml (0.083%) NEB.SOLN INH SCH (19:09)
[2020-09-26] MEDS: Lidocaine Patch REMOVE PATCH PATCH OFF SCH (20:04)
[2020-09-27] MEDS: Albuterol 2.5mg/3 ml (0.083%) NEB.SOLN INH SCH ×4 (01:42→19:42)
[2020-09-27] MEDS: [UNRECOGNIZED DRUG - OTHER] INH SCH ×2 (06:54→07:54)
[2020-09-27] MEDS: Acetaminop/Codeine 300mg/30mg TAB PO SCH ×4 (07:34→20:28)
[2020-09-27] MEDS: Amphetamine MIXED SALT 10mgTAB PO SCH (08:30)
[2020-09-27] MEDS: Vitamin THERAPEUTIC TAB PO SCH (08:32)
[2020-09-27] MEDS: Cholecalciferol (VIT D3) 1,000 unit TAB PO SCH (08:32)
[2020-09-27] MEDS: Enoxaparin 40 MG/0.4 ML SYR SUBCUT SCH (12:04)
[2020-09-27] MEDS: Morphine ORAL.SOLN 10 mg 2 mg/ml UDC 5 ml (10 mg) PO PRN ×2 (15:48→22:05)
[2020-09-27] MEDS: Lidocaine Patch REMOVE PATCH PATCH OFF SCH (20:07)
[2020-09-28] MEDS: Acetaminop/Codeine 300mg/30mg TAB PO SCH ×4 (01:49→19:00)
[2020-09-28] MEDS: Albuterol 2.5mg/3 ml (0.083%) NEB.SOLN INH SCH ×4 (02:13→19:55)
[2020-09-28] MEDS: Morphine ORAL.SOLN 10 mg 2 mg/ml UDC 5 ml (10 mg) PO PRN (05:51)
[2020-09-28] MEDS: [UNRECOGNIZED DRUG - OTHER] INH SCH (07:48)
[2020-09-28] MEDS: Amphetamine MIXED SALT 10mgTAB PO SCH (08:53)
[2020-09-28] MEDS: Cholecalciferol (VIT D3) 1,000 unit TAB PO SCH (08:55)
[2020-09-28] MEDS: Vitamin THERAPEUTIC TAB PO SCH (08:56)
[2020-09-28] MEDS: Enoxaparin 40 MG/0.4 ML SYR SUBCUT SCH (12:42)
[2020-09-28] MEDS: Acetaminop/Codeine 300mg/30mg TAB PO PRN (15:24)
[2020-09-29] MEDS: Acetaminop/Codeine 300mg/30mg TAB PO SCH ×5 (00:29→19:10)
[2020-09-29] MEDS: Albuterol 2.5mg/3 ml (0.083%) NEB.SOLN INH SCH ×2 (00:43→07:16)
[2020-09-29] MEDS: [UNRECOGNIZED DRUG - OTHER] INH SCH (07:16)
[2020-09-29] MEDS: Albuterol HFA INHALER 8 gm MDI INH PRN (07:17)
[2020-09-29] MEDS: Cholecalciferol (VIT D3) 1,000 unit TAB PO SCH (07:32)
[2020-09-29] MEDS: Amphetamine MIXED SALT 10mgTAB PO SCH (07:32)
[2020-09-29] MEDS: Vitamin THERAPEUTIC TAB PO SCH (07:33)
[2020-09-29] MEDS: Enoxaparin 40 MG/0.4 ML SYR SUBCUT SCH (10:05)
[2020-09-29] MEDS: Acetaminop/Codeine 300mg/30mg TAB PO PRN ×3 (10:07→22:26)
[2020-09-29 10:49] LABS: ABS Eosinophils 0.1 10^3/ul (0-0.6); ABS Monocytes 0.2 10^3/ul (0-0.8); ABS Neutrophils 7.7 10^3/ul (1.5-7.7); Eosinophil % 0.6 %; Hematocrit 35 % (35-47); Hemoglobin 11.7 g/dL (12.0-16.0); Lymphocyte % 10.6 %; Mean Corpuscular HGB Conc 34 g/dL (31-36); Mean Corpuscular Hemoglobin 32 pg (27-31); Mean Corpuscular Volume 95 fL (80-97); Mean Platelet Volume 7.2 fL (7.4-10.4); Platelet Count 376 10^3/uL (150-450); Red Blood Count 3.64 10^6 /uL (3.70-4.87); Red Cell Distribution Width 14 % (10-15)
[2020-09-29 11:06] LABS: Albumin 3.6 g/dL (3.2-5.2); Albumin/Globulin Ratio 1.3 (1-3); Calcium 8.8 mg/dL (8.6-10.3); EGFR African American 96.2 (>60); EGFR Non-African American 79.5 (>60); Globulin 2.8 g/dL (2-4); Potassium 4.1 mmol/L (3.5-5.0); Total Bilirubin 0.4 mg/dL (0.2-1.0); Total Protein 6.4 g/dL (6.4-8.9)
[2020-09-29] MEDS ORDERED: Albuterol 2.5mg/3 ml (0.083%) NEB.SOLN INH PRN (11:29)
[2020-09-30] MEDS: Acetaminop/Codeine 300mg/30mg TAB PO SCH ×2 (02:16→06:41)
[2020-09-30 06:57] VITALS: BP 134/76
[2020-09-30] MEDS: Amphetamine MIXED SALT 10mgTAB PO SCH (08:12)
[2020-09-30] MEDS: Cholecalciferol (VIT D3) 1,000 unit TAB PO SCH (08:13)
[2020-09-30] MEDS: Vitamin THERAPEUTIC TAB PO SCH (08:14)
[2020-09-30] MEDS: [UNRECOGNIZED DRUG - OTHER] INH SCH (11:51)
== END 2020-09-30 13:23 | disposition home or self-care (01) | DRG 560 ==
LOC: PMRU 10:08
PROVIDERS: ADMIT Physical Medicine & Rehabilitation; ATTEND Physical Medicine & Rehabilitation

== ENCOUNTER 2020-10-28 12:35 | Observation (INO) ==
[2020-10-28] MEDS ORDERED: NS 0.9% 1000 ml BAG 1,000 ML IV ONE ×2 (13:06→13:50)
[2020-10-28 13:30] LABS: ABS Basophils 0.1 10^3/ul (0-0.2); ABS Lymphocytes 1.6 10^3/ul (1.0-4.8); ABS Monocytes 0.9 10^3/ul (0-0.8); ABS Neutrophils 17.1 10^3/ul (1.5-7.7); Eosinophil % 0.2 %; Hematocrit 44 % (35-47); Hemoglobin 15.4 g/dL (12.0-16.0); Lymphocyte % 8.2 %; Mean Corpuscular HGB Conc 35 g/dL (31-36); Mean Corpuscular Hemoglobin 33 pg (27-31); Mean Corpuscular Volume 94 fL (80-97); Platelet Count 429 10^3/uL (150-450); Red Blood Count 4.73 10^6 /uL (3.70-4.87); Red Cell Distribution Width 14 % (10-15); White Blood Count 19.8 10^3/uL (3.5-10.8)
[2020-10-28 13:50] LABS: Albumin 4.4 g/dL (3.2-5.2); Albumin/Globulin Ratio 1.4 (1-3); Calcium 9.7 mg/dL (8.6-10.3); EGFR African American 50.8 (>60); Globulin 3.1 g/dL (2-4); Potassium 3.8 mmol/L (3.5-5.0); Total Bilirubin 0.5 mg/dL (0.2-1.0); Total Protein 7.5 g/dL (6.4-8.9)
[2020-10-28 13:51] LABS: Troponin I 0.02 ng/mL (<0.03)
[2020-10-28 14:48] LABS: Urine Appearance Cloudy; Urine Bilirubin Negative (Negative); Urine Blood Negative (Negative); Urine Color Yellow; Urine Glucose Negative (Negative); Urine Ketones 2+ (Negative); Urine Nitrite Negative (Negative); Urine Protein 1+(30 mg/dL) (Negative); Urine Specific Gravity 1.016 (1.002-1.030); Urine Urobilinogen Negative (Negative)
[2020-10-28 14:58] LABS: Urine Bacteria 1+ (Absent); Urine Red Blood Cell 2+(6-10/hpf) (Absent); Urine Squamous Epithelial Cell Present (Absent); Urine White Blood Cell Absent (Absent)
[2020-10-28 17:06] LABS: Troponin I 0.03 ng/mL (<0.03)
[2020-10-28] MEDS ORDERED: cefTRIAXone 1 gm/50 mL NS BAG 1 GM/50 ML BAG IV ONE (17:14)
[2020-10-28] MEDS ORDERED: Iodixanol (CONTRAST) 320 MG/ML 100 ML SDV IV ONE ×2 (17:20→17:23)
[2020-10-28] MEDS ORDERED: Albuterol HFA INHALER 8 gm MDI INH PRN (20:03)
[2020-10-28] MEDS ORDERED: Albuterol 2.5mg/3 ml (0.083%) NEB.SOLN INH PRN (20:03)
[2020-10-28 20:05] LABS: Troponin I 0.03 ng/mL (<0.03)
[2020-10-28 20:47] LABS: Urine Creatinine Concentration 141.41 mg/dL
[2020-10-28] MEDS ORDERED: Enoxaparin 40 MG/0.4 ML SYR SUBCUT SCH (21:00)
[2020-10-28] MEDS ORDERED: Lactated Ringers 1000 ml BAG 1,000 ML IV ONE (23:35)
[2020-10-29] MEDS ORDERED: Lactated Ringers 1000 ml BAG 1,000 ML IV SCH (05:00)
[2020-10-29 06:38] LABS: ABS Basophils 0.1 10^3/ul (0-0.2); ABS Eosinophils 0.1 10^3/ul (0-0.6); ABS Lymphocytes 3.4 10^3/ul (1.0-4.8); ABS Monocytes 0.6 10^3/ul (0-0.8); ABS Neutrophils 4.4 10^3/ul (1.5-7.7); Eosinophil % 1.7 %; Hematocrit 33 % (35-47); Hemoglobin 11.8 g/dL (12.0-16.0); Lymphocyte % 39.4 %; Mean Corpuscular HGB Conc 35 g/dL (31-36); Mean Corpuscular Hemoglobin 33 pg (27-31); Mean Corpuscular Volume 93 fL (80-97); Mean Platelet Volume 7.7 fL (7.4-10.4); Platelet Count 256 10^3/uL (150-450); Red Cell Distribution Width 14 % (10-15); White Blood Count 8.5 10^3/uL (3.5-10.8)
[2020-10-29 06:50] LABS: Calcium 8.4 mg/dL (8.6-10.3); Magnesium 1.6 mg/dL (1.9-2.7); Potassium 3.9 mmol/L (3.5-5.0)
[2020-10-29 06:56] LABS: EGFR African American 71.9 (>60); EGFR Non-African American 59.4 (>60); HDL Cholesterol 43.7 mg/dL
[2020-10-29 07:32] LABS: TSH Ultra Thyroid Stim Horm 2.07 mcIU/mL (0.34-5.60)
[2020-10-29] MEDS ORDERED: CMCS: FLUTICAS/UMECLI/VILANT 200-62.5-25 MDI (NF) INH SCH (09:00)
[2020-10-29] MEDS ORDERED: Amphetamine MIXED SALT 10mgTAB PO SCH (09:00)
[2020-10-29] MEDS ORDERED: Regadenoson 0.4 MG/5 ML SYRINGE ONE (09:45)
[2020-10-29] MEDS ORDERED: Aminophylline 25 MG/ML VIAL ONE (09:45)
[2020-10-29 15:38] VITALS: BP 109/65
[2020-10-29] MEDS ORDERED: cefTRIAXone 1 gm/50 mL NS BAG 1 GM/50 ML BAG IV SCH (17:00)
== END 2020-10-29 18:30 | disposition home or self-care (01) ==
LOC: MEDTELE 12:35 → ED 12:35
PROVIDERS: ADMIT Internal Medicine; ATTEND Student in an Organized Health Care Education/Training Program